=== PATIENT | female | born 1955 | race Caucasian/White ===

== ENCOUNTER → 2017-05-06 | Outpatient (CLI) | payer BC ==
[~2017-05-06] MED LIST: CHLO4TAB36 PO; LORA10TA7 PO; LOSA50TA36 PO; METO-387 PO
--- NOTE | 2017-05-06 08:50 | Diagnostic Imaging Report ---
INDICATION: Chronic shoulder pain. TIME OF EXAM: 8:48 AM Multiple views of bilateral shoulders were obtained. FINDINGS: Glenohumeral and acromioclavicular alignment is normal bilaterally. The acromiohumeral space is normal bilaterally. No fracture or dislocation is seen. IMPRESSION: No acute bony abnormality is detected. Dictated by: Dictated on workstation # [id number]
--- NOTE | 2017-05-07 08:45 | Diagnostic Imaging Report ---
INDICATION: Chest pain. EXAMINATION: Gated cardiac CTA without contrast for calcium scoring was performed. INDICATION: Chest pain. TECHNIQUE: A retrospective ECG gated cardiac CT was performed from the cardiac apex to the base without intravenous contrast and calcium scoring was obtained. FINDINGS: The total calcium score is zero. The heart size is normal. There is no pericardial effusion. The visualized portions of the lungs demonstrate no nodule or significant consolidation. IMPRESSION: The total calcium score of zero suggests a very low likelihood of significant coronary artery disease. Dictated by: Dictated on workstation # [id number]
== END ==
LOC: RAD 08:17
PROVIDERS: ATTEND Internal Medicine
DX: M25.511 Pain in right shoulder (principal); M25.512 Pain in left shoulder; R07.9 Chest pain, unspecified; G89.29 Other chronic pain
CPT/HCPCS: 75571

== ENCOUNTER → 2017-07-13 | Outpatient (CLI) | payer BC ==
--- NOTE | 2017-07-13 12:08 | Diagnostic Imaging Report ---
PROCEDURE: MR imaging cervical spine without contrast. TECHNIQUE: Multiplanar, multisequence MR imaging of the cervical spine was performed without contrast. INDICATION: Chronic neck pain, bilateral shoulder pain, symptoms progressive in severity with no known discrete injury. COMPARISON: I have no priors. FINDINGS: The cervical and visualized upper thoracic spinal cord has a normal volume and normal morphology and a normal signal intensity. There was no paravertebral mass, hemorrhage, or fluid collection and no acute appearing marrow signal pathology. There is slight grade 1 anterolisthesis of C3 on C4 of about 2 mm and C4 on C5 of about 5 mm and retrolisthesis of C5 on C6 and C6 on C7, both grade 1 of about 3-4 mm. Malalignments are accompanied by disc space narrowing, disc desiccation, endplate sclerosis, osteophytes and hypertrophic facet arthrosis, and degenerative disease believed to account for the multilevel mild listheses. No appreciable ligamentous injury, and no acute marrow signal pathology or fracture. The craniocervical relationship and the C1-C2 level appeared normal. C2-C3: Mild disc bulge and endplate osteophytes are present without resultant canal, foraminal, or recess stenoses. C3-C4: There is slight listhesis and hypertrophic facet arthrosis with mild disc bulge and endplate osteophytes. Findings result in a moderate degree of left-sided foraminal narrowing. The right neural foramen is mildly narrowed. The canal showed no significant stenosis. C4-C5: Osteophyte disc material effaces and flattens the ventral thecal sac. There is facet arthrosis and uncovertebral joint spurring and hypertrophy resulting in wrmw-uh-qeozqlcg left and mild right neural foraminal stenosis in addition to a mild degree of canal narrowing. C5-C6: Posterior disc bulge and endplate osteophytes with uncovertebral joint spurring and hypertrophy flatten and effaces the ventral thecal sac with a moderate severity of canal stenosis. On the soft tissue and osseous basis, there is wbhz-ua-udjdlagi left and moderate severity right foraminal stenosis. C6-C7: Posterior osteophyte disc material flattens and effaces the ventral thecal sac with sgti-mr-ziuoezas canal stenosis. There is severe right and moderate left foraminal stenosis. C7-T1 level reveals mild degenerative change without resultant stenosis. The T1-T2 level shows bulging disc material resulting in at least moderate severities of biforaminal narrowing with mild canal stenosis. IMPRESSION: Multilevel spondylosis, facet arthrosis, and uncovertebral joint hypertrophy with resultant multilevel grade 1 degenerative listheses described above. Normal cord. Multilevel foraminal greater than spinal canal stenoses listed level by level above. No acute pathology. Dictated by: Dictated on workstation # [id number]
== END ==
LOC: RAD 10:17
PROVIDERS: ATTEND Nurse Practitioner Family
DX: M48.02 Spinal stenosis, cervical region (principal); M48.04 Spinal stenosis, thoracic region; M43.12 Spondylolisthesis, cervical region; M47.23 Other spondylosis with radiculopathy, cervicothoracic region; M89.38 Hypertrophy of bone, other site; M50.11 Cervical disc disorder with radiculopathy, high cervical region
CPT/HCPCS: 72141

== ENCOUNTER → 2017-10-04 | Outpatient (CLI) | payer BC ==
--- NOTE | 2017-10-04 11:08 | Diagnostic Imaging Report ---
EXAMINATION: Magnetic resonance imaging of the right shoulder without contrast. DATE: 10/04/2017. COMPARISON: Shoulder radiographs 05/06/2017. INDICATION: 62-year-old female, right shoulder pain, impingement. TECHNIQUE: Magnetic Resonance Imaging sequences were performed of the shoulder without contrast. FINDINGS: ROTATOR CUFF, LIGAMENTS, TENDONS, AND MUSCLES: There are full-thickness fullwidth tears of the supraspinatus and infraspinatus tendons with tendon retraction to the level of the superior humeral head measuring 3 cm. The teres minor tendon is intact. There is subscapularis tendinopathy. There is mild fatty atrophy of the teres minor muscle. There is no pronounced fatty atrophy of the additional rotator cuff musculature. There is no otherwise abnormal intramuscular signal. LONG HEAD OF BICEPS: The long head of biceps tendon is thickened and increased in signal compatible with long head of biceps tendinopathy. The long head of biceps tendon is normally positioned within the bicipital groove. The biceps labral attachment is intact. GLENOHUMERAL JOINT: The humeral head is well positioned relative to the glenoid. The labrum is grossly intact. There is no identified paralabral cyst. The articular cartilage is grossly intact. There is no joint effusion. ACROMIOCLAVICULAR JOINT: The acromioclavicular joint is normally aligned. The coracoclavicular and coracoacromial ligaments are intact. There are moderate acromioclavicular degenerative changes without large undersurface osteophyte. There are prominent subchondral cysts within the distal clavicle. BONE: There is no acute fracture, bone contusion, or evidence of osteonecrosis. BURSAE AND SOFT TISSUES: There is fluid within the subacromial subdeltoid bursa which is compatible with the full-thickness rotator cuff tendon tears, bursitis, and/or recent injection. IMPRESSION: 1. Full-thickness and fullwidth tears of both the supraspinatus and infraspinatus tendons with tendon retraction to the level of the superior humeral head measuring 3 cm. No pronounced fatty muscle atrophy. Subscapularis tendinopathy. Mild fatty atrophy of the teres minor muscle. 2. Moderate acromioclavicular degenerative changes without large undersurface osteophyte. 3. No acute fracture or bone contusion. 4. Fluid within the subacromial subdeltoid bursa compatible with the full-thickness rotator cuff tendon tears, bursitis, and/or recent injection. 5. Long head of biceps tendinopathy. Dictated by: Dictated on workstation # [id number]
== END ==
LOC: RAD 08:57
PROVIDERS: ATTEND Nurse Practitioner Family
DX: M75.121 Complete rotator cuff tear or rupture of right shoulder, not specified as traumatic (principal); M19.011 Primary osteoarthritis, right shoulder; M67.813 Other specified disorders of tendon, right shoulder; M25.811 Other specified joint disorders, right shoulder
CPT/HCPCS: 73221

== ENCOUNTER 2017-12-10 09:05 | Emergency (ER) | payer BC ==
[~2017-12-10] VITALS: Ht 157.5 cm; Wt 82.1 kg
[~2017-12-10 09:05] MED LIST changes: +AMLO2.5T3 PO; +CARB15DR OU; +CEFD300C3 PO; +LOSA100T8 PO; -LOSA50TA36 PO; +LOSA50TA7 PO; +MELO15TA39 PO; +METO-370 PO; +MOME13HF IH; +PRED10TA22 PO; +RT-ALBUINH IH
[2017-12-10] MEDS ORDERED: NITROGLYCERIN 0.4 MG SL TABS BTL 25'S SL PRN (09:15)
[2017-12-10] MEDS ORDERED: ASPIRIN 81 MG CHEW (CHILDREN'S ASA) PO ONE (09:15)
[2017-12-10 09:21] LABS: BASOPHILS % (AUTO) 0 % (0-10); EOSINOPHILS # (AUTO) 0.2 10^3/uL (0.0-0.3); EOSINOPHILS % (AUTO) 2 % (0-10); HEMATOCRIT 38 % (35-52); HEMOGLOBIN 12.5 G/DL (11.5-16.0); LYMPHOCYTES # (AUTO) 3.6 X 10^3 (1.0-4.0); LYMPHOCYTES % (AUTO) 33 % (12-44); MEAN CORPUSCULAR HEMOGLOBIN 31 PG (25-34); MEAN CORPUSCULAR HGB CONC 33 G/DL (32-36); MEAN CORPUSCULAR VOLUME 94 FL (80-99); MEAN PLATELET VOLUME 8.5 FL (7.4-10.4); MONOCYTES # (AUTO) 0.8 X 10^3 (0.0-1.0); MONOCYTES % (AUTO) 8 % (0-12); NEUTROPHILS # (AUTO) 6.2 X 10^3 (1.8-7.8); NEUTROPHILS % (AUTO) 57 % (42-75); PLATELET COUNT 369 10^3/uL (130-400); RED CELL DISTRIBUTION WIDTH 14.4 % (10.0-14.5); WHITE BLOOD COUNT 10.9 10^3/uL (4.3-11.0)
[2017-12-10 09:35] LABS: INR 0.9 (0.8-1.4); PROTHROMBIN TIME PATIENT 12.6 SEC (12.2-14.7)
--- NOTE | 2017-12-10 09:41 | Diagnostic Imaging Report ---
CLINICAL INDICATION: Patient with chest pain. EXAM: Portable chest x-ray upright view. COMPARISONS: Chest x-ray dated 11/24/2017. Chest CT scan with contrast dated 11/26/2017. FINDINGS: Lungs/pleura: Stable calcified granuloma in the right upper lobe. There is slight progression of mild bibasilar atelectasis. Otherwise, lungs are clear. There is no pneumothorax. There is no pleural effusion. Mediastinum: Unremarkable. Pulmonary vasculature: Unremarkable. Heart: Unremarkable. Bones/extrathoracic soft tissue: Unremarkable. IMPRESSION: 1: There is interval mild bibasilar atelectasis. Otherwise, there is no radiographic evidence of acute cardiopulmonary process. 2: Stable calcified granuloma overlying the right upper lobe. Dictated by: Dictated on workstation # [id number]
[2017-12-10 09:45] LABS: ALANINE AMINOTRANSFERASE 33 U/L (0-55); ALBUMIN 4.1 GM/DL (3.2-4.5); ALKALINE PHOSPHATASE 54 U/L (40-136); AMYLASE 48 U/L (25-125); BILIRUBIN,TOTAL 0.4 MG/DL (0.1-1.0); BUN/CREATININE RATIO 20; CALCIUM 9.3 MG/DL (8.5-10.1); CARBON DIOXIDE 23 MMOL/L (21-32); CHLORIDE 103 MMOL/L (98-107); CREATINE KINASE 38 U/L (29-168); CREATININE SERUM 0.81 MG/DL (0.60-1.30); GFR ESTIMATED > 60; GLUCOSE 118 MG/DL (70-105); LIPASE 39 U/L (8-78); MAGNESIUM 2.7 MG/DL (1.8-2.4); POTASSIUM 4.1 MMOL/L (3.6-5.0); SODIUM 136 MMOL/L (135-145)
--- NOTE | 2017-12-10 09:46 | ED Chest Pain ---
General Chief Complaint: Chest Pain Stated Complaint: CHEST PAIN Source: patient Exam Limitations: no limitations History of Present Illness Date Seen by Provider: Dec 10, 2017 Time Seen by Provider: 09:08 Initial Comments PT ARRIVES VIA POV FROM HOME C/O MID CHEST PAIN THAT BEGAN 15 MINUTES PRIOR TO ARRIVAL, WHILE SITTING AT COMPUTER AND PAIN CONTINUES NO RADIATION OF PAIN SYMPTOMS SLIGHTLY WORSENED BY EXERTION RATES PAIN 7/10 AT WORST, 6/10 NOW. SLIGHT SHORTNESS OF BREATH + SWEATS + NAUSEA, NO VOMITING NO SWELLING IN LEGS /FEET OR PAIN IN CALVES HAD SIMILAR PAIN YESTERDAY, BUT ONLY LASTED A COUPLE OF MINUTES AND WENT AWAY WAS SITTING AND EATING AT THE TIME. WAS NOT EATING OR RECENTLY EATEN TODAY WHEN PAIN BEGAN. NO HISTORY OF SIMILAR, PRIOR TO YESTERDAY PT WAS LAST SEEN A COUPLE OF WEEKS AGO BY HER PCP, FOR COPD PT USED NORMAL SCHEDULED STEROID INHALER THIS AM, PT IS TO HAVE RIGHT SHOULDER SURGERY NEXT WEEK PCP: DR. MOTT Allergies and Home Medications Allergies Coded Allergies: No Known Drug Allergies (Unverified , 05/04/15) Home Medications Albuterol Sulfate 1 Puff Puff, 2 PUFF IH Q6H PRN for SHORTNESS OF BREATH 1 PUFF = 90 MCG Prescribed by: RED MOTT on 11/27/17 1219 Amlodipine Besylate 2.5 Mg Tablet, 2.5 MG PO HS, (Reported) Carboxymethylcellulose Sodium 15 Ml Drops, 1-2 DROPS OU TID PRN for DRY EYES, ( Reported) Cefdinir 300 Mg Capsule, 300 MG PO BID Prescribed by: RED MOTT on 11/27/179 Chlorpheniramine Maleate 4 Mg Tablet, 4 MG PO HS, (Reported) Loratadine 10 Mg Tablet, 10 MG PO HS, (Reported) Losartan Potassium 100 Mg Tablet, 100 MG PO HS, (Reported) Meloxicam 15 Mg Tablet, 15 MG PO HS, (Reported) Metoprolol Succinate 50 Mg Tab.er.24h, 50 MG PO HS, (Reported) Mometasone/Formoterol 13 Gm Hfa.aer.ad, 1 PUFF IH BID, (Reported) Prednisone 10 Mg Tab.ds.pk, 10 MG PO DAILY Take 6 tabs(60mg)daily,decrease by 1 tab(10mg)every other day. Prescribed by: RED MOTT on 11/27/17 1219 Patient Home Medication List Home Medication List Reviewed: Yes Review of Systems Review of Systems Constitutional: see HPI, diaphoresis EENTM: No Symptoms Reported Respiratory: See HPI, Shortness of Air, SOA With Exertion Cardiovascular: See HPI, Chest Pain; Denies Edema, Denies Irregular Heart Rate , Denies Lightheadedness, Denies Palpitations, Denies Syncope Gastrointestinal: See HPI; Denies Abdominal Pain; Nausea; Denies Vomiting Genitourinary: No Symptoms Reported Musculoskeletal: see HPI Skin: no symptoms reported Psychiatric/Neurological: No Symptoms Reported Endocrine: No Symptoms Reported Hematologic/Lymphatic: No Symptoms Reported Past Kglklrj-Vzffey-Gjjwmb Hx Patient Social History Alcohol Use: Occasionally Uses Alcohol Beverage of Choice: Wine Recreational Drug Use: No Smoking Status: Never a Smoker Recent Foreign Travel: No Contact w/Someone Who Travel: No Recent Hopitalizations: No Seasonal Allergies Seasonal Allergies: Yes Past Medical History Surgeries: Yes (CATARACTS, WISDOM TEETH REMOVED) Hysterectomy, Oophorectomy Respiratory: Yes COPD Cardiac: Yes High Cholesterol, Hypertension Neurological: No Reproductive Disorders: No (FIBROIDS ON BREASTS) 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 0.0oz. 86.607691hf; 33.9 BMI Method: General Appearance: No Apparent Distress, WD/WN Neck: Full Range of Motion, Normal Inspection, Non Tender, Supple; No Carotid Bruit, No JVD Respiratory: Chest Non Tender, Normal Breath Sounds, No Accessory Muscle Use, No Respiratory Distress Cardiovascular: Regular Rate, Rhythm, No Edema, No JVD, No Murmur, Normal Peripheral Pulses Gastrointestinal: Normal Bowel Sounds, No Organomegaly, No Pulsatile Mass, Non Tender, Soft Extremity: Normal Capillary Refill, Normal Inspection, Normal Range of Motion, Non Tender, No Calf Tenderness, No Pedal Edema Neurologic/Psychiatric: Alert, Oriented x3, No Motor/Sensory Deficits, Normal 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/Affect, 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 Norm as Tested Skin: Normal Color, Diaphoresis (AND WARM) Progress/Results/Core Measures Results/Orders Lab Results Laboratory Tests Test 12/10/17 09:15 Range/Units White Blood Count 10.9 4.3-11.0 10^3/uL Red Blood Count 4.00 L 4.35-5.85 10^6/uL Hemoglobin 12.5 11.5-16.0 G/DL Hematocrit 38 35-52 % Mean Corpuscular Volume 94 80-99 FL Mean Corpuscular Hemoglobin 31 25-34 PG Mean Corpuscular Hemoglobin Concent 33 32-36 G/DL Red Cell Distribution Width 14.4 10.0-14.5 % Platelet Count 369 130-400 10^3/uL Mean Platelet Volume 8.5 7.4-10.4 FL Neutrophils (%) (Auto) 57 42-75 % Lymphocytes (%) (Auto) 33 12-44 % Monocytes (%) (Auto) 8 0-12 % Eosinophils (%) (Auto) 2 0-10 % Basophils (%) (Auto) 0 0-10 % Neutrophils # (Auto) 6.2 1.8-7.8 X 10^3 Lymphocytes # (Auto) 3.6 1.0-4.0 X 10^3 Monocytes # (Auto) 0.8 0.0-1.0 X 10^3 Eosinophils # (Auto) 0.2 0.0-0.3 10^3/uL Basophils # (Auto) 0.0 0.0-0.1 10^3/uL Prothrombin Time 12.6 12.2-14.7 SEC INR Comment 0.9 0.8-1.4 Activated Partial Thromboplast Time 20 L 24-35 SEC Sodium Level 136 135-145 MMOL/L Potassium Level 4.1 3.6-5.0 MMOL/L Chloride Level 103 98-107 MMOL/L Carbon Dioxide Level 23 21-32 MMOL/L Anion Gap 10 5-14 MMOL/L Blood Urea Nitrogen 16 7-18 MG/DL Creatinine 0.81 0.60-1.30 MG/DL Estimat Glomerular Filtration Rate > 60 BUN/Creatinine Ratio 20 Glucose Level 118 H 70-105 MG/DL Calcium Level 9.3 8.5-10.1 MG/DL Corrected Calcium 9.2 8.5-10.1 MG/DL Magnesium Level 2.7 H 1.8-2.4 MG/DL Total Bilirubin 0.4 0.1-1.0 MG/DL Aspartate Amino Transf (AST/SGOT) 15 5-34 U/L Alanine Aminotransferase (ALT/SGPT) 33 0-55 U/L Alkaline Phosphatase 54 40-136 U/L Total Creatine Kinase 38 29-168 U/L Creatine Kinase MB 1.3 <6.6 NG/ML Myoglobin 22.2 10.0-92.0 NG/ML Troponin I < 0.30 <0.30 NG/ML B-Type Natriuretic Peptide 16.0 <100.0 PG/ML Total Protein 6.0 L 6.4-8.2 GM/DL Albumin 4.1 3.2-4.5 GM/DL Amylase Level 48 25-125 U/L Lipase 39 8-78 U/L My Orders Orders - ELISHA RYAN DO Cbc With Automated Diff (12/10/17 09:09) Magnesium (12/10/17 09:09) Chest 1 View, Ap/Pa Only (12/10/17 09:09) Ekg Tracing (12/10/17 09:09) Cardiac Profile 1 (12/10/17 09:09) Comprehensive Metabolic Panel (12/10/17 09:09) Myoglobin Serum (12/10/17 09:09) Protime With Inr (12/10/17 09:09) Partial Thromboplastin Time (12/10/17 09:09) O2 (12/10/17 09:09) Monitor-Rhythm Ecg Trace Only (12/10/17 09:09) Aspirin Chewable Tablet (Baby Aspirin Ch (12/10/17 09:15) Nitroglycerin 0.4 Mg Btl 25's (Nitrostat (12/10/17 09:15) Saline Lock/Iv-Start (12/10/17 09:09) Creatine Kinase (12/10/17 09:09) Creatine Kinase Mb (12/10/17 09:09) Lipase (12/10/17 09:09) Amylase (12/10/17 09:09) BNP (12/10/17 09:09) Enoxaparin Injection (Lovenox Injection) (12/10/17 10:15) Medications Given in ED Current Medications Medications Dose Ordered Sig/Bernardo Route Start Time Stop Time Status Last Admin Dose Admin Aspirin 324 mg ONCE ONCE PO 12/10/17 09:15 12/10/17 09:16 DC 12/10/17 09:49 324 MG Enoxaparin Sodium 80 mg ONCE ONCE SC 12/10/17 10:15 12/10/17 10:16 DC 12/10/17 11:36 80 MG Nitroglycerin 0.4 mg UD PRN SL 12/10/17 09:15 12/10/17 13:44 DC 12/10/17 09:45 0.4 MG Vital Signs/I&O 12/10/17 12/10/17 12/10/17 12/10/17 09:06 09:06 09:06 13:44 Temp 98.1 98.1 Pulse 51 61 Resp 16 25 B/P (MAP) 153/83 (106) 114/69 Pulse Ox 98 96 99 O2 Delivery Nasal Cannula Room Air Room Air O2 Flow Rate 2.00 Progress Progress Note : Progress Note PAIN AND ALL OTHER SYMPTOMS COMPLETELY RESOLVED WITH NTG X 1 UNEVENTFUL ER STAY Initial ECG Impression Date: Dec 10, 2017 Initial ECG Impression Time: 09:09 Initial ECG Rate: 52 Initial ECG Rhythm: Normal Sinus Initial ECG Comparisson: No Previous ECG Available Diagnostic Imaging Comments CXR---MILD BIBASILAR ATELECTASIS, OTHERWISE NO ACUTE PROCESS PER RADIOLOGIST REPORT @ 0945 Reviewed: Reviewed by Me Departure Communication (Admissions) THIS FACILITY IS CURRENTLY ON COMPLETE DIVERSION--NO BEDS AVAILABLE [facility]--CALLED [facility]. SPOKE WITH DR. THOMAS, ACCEPTS PT FOR ADMIT. ORDERS NOTED. MARKED DELAY IN TRANSPORT, DUE TO MULTIPLE PATIENTS BEING TRANSFERRED AT THE SAME TIME Impression Primary Impression: Chest pain Disposition: XFER T-[facility] Condition: Improved Departure-Patient Inst. Referrals: RED MOTT DO (PCP/Family) Primary Care Physician ELISHA RYAN DO Dec 10, 2017 09:46
[2017-12-10 09:53] LABS: CREATINE KINASE MB 1.3 NG/ML (<6.6); MYOGLOBIN SERUM 22.2 NG/ML (10.0-92.0)
[2017-12-10] MEDS ORDERED: ENOXAPARIN 80 MG/0.8 ML (LOVENOX) SYR SC ONE (10:15)
[2017-12-10 13:44] VITALS: BP 114/69
== END 2017-12-10 13:35 | disposition home or self-care (01) ==
LOC: EDUNIT# 09:05 → ER 09:07
DX: R07.89 Other chest pain (principal); J44.9 Chronic obstructive pulmonary disease, unspecified; E78.00 Pure hypercholesterolemia, unspecified; I10 Essential (primary) hypertension; Z79.51 Long term (current) use of inhaled steroids; Z90.710 Acquired absence of both cervix and uterus
CPT/HCPCS: 36415; 71045; 80053; 82150; 82550; 82553; 83690; 83735; 83874; 83880; 84484; 85025; 85610; 85730; 93005; 93041; 96372

== ENCOUNTER → 2018-01-07 | Outpatient (CLI) | payer BC | LOC: RT 12:44 | PROVIDERS: ATTEND Internal Medicine | DX: R05 Cough (principal) | CPT/HCPCS: 94060; 94726; 94729 ==

== ENCOUNTER 2018-04-06 13:09 | Outpatient (RCR) | payer BC ==
[~2018-04-06 13:09] MED LIST changes: -AMLO2.5T3 PO; +AMLO2.5T4 PO; +LOSA100T57 PO; -LOSA100T8 PO; +LOSA50TA63 PO; -LOSA50TA7 PO
== END 2018-05-15 | disposition home or self-care (01) ==
PROVIDERS: ATTEND Nurse Practitioner Family
DX: M25.511 Pain in right shoulder (principal)

== ENCOUNTER → 2018-07-08 | Outpatient (CLI) | payer BC ==
[2018-07-08 14:57] LABS: BASOPHILS % (AUTO) 1 % (0-10); EOSINOPHILS # (AUTO) 0.2 10^3/uL (0.0-0.3); EOSINOPHILS % (AUTO) 4 % (0-10); HEMATOCRIT 42 % (35-52); HEMOGLOBIN 13.9 G/DL (11.5-16.0); LYMPHOCYTES # (AUTO) 1.8 X 10^3 (1.0-4.0); LYMPHOCYTES % (AUTO) 35 % (12-44); MEAN CORPUSCULAR HEMOGLOBIN 31 PG (25-34); MEAN CORPUSCULAR HGB CONC 33 G/DL (32-36); MEAN CORPUSCULAR VOLUME 93 FL (80-99); MEAN PLATELET VOLUME 8.9 FL (7.4-10.4); MONOCYTES # (AUTO) 0.5 X 10^3 (0.0-1.0); MONOCYTES % (AUTO) 10 % (0-12); NEUTROPHILS # (AUTO) 2.6 X 10^3 (1.8-7.8); NEUTROPHILS % (AUTO) 51 % (42-75); PLATELET COUNT 321 10^3/uL (130-400); RED CELL DISTRIBUTION WIDTH 13.8 % (10.0-14.5); WHITE BLOOD COUNT 5.2 10^3/uL (4.3-11.0)
--- NOTE | 2018-07-08 15:57 | Diagnostic Imaging Report ---
INDICATION: Cough. TIME OF EXAM: 02:16 p.m. Correlation is made with prior chest from 12/10/2017. FINDINGS: Tiny nodule in right mid lung is stable and consistent with granuloma. The pulmonary vascularity is normal. No infiltrate, effusion, or pneumothorax is seen. IMPRESSION: No acute cardiopulmonary process is detected. Dictated by: Dictated on workstation # [id number]
== END ==
LOC: RAD 14:39
PROVIDERS: ATTEND Nurse Practitioner Family
DX: R05 Cough (principal)
CPT/HCPCS: 36415; 71046; 85025

== ENCOUNTER 2018-12-12 17:18 | Emergency (ER) | payer MEDICARE, OTHER ==
[~2018-12-12] VITALS: Ht 157 cm; Wt 77.0 kg
[2018-12-12] MEDS ORDERED: predniSONE 20 MG TAB PO ONE (17:30)
[2018-12-12] MEDS ORDERED: diphenhydrAMINE 50 MG/ML INJ (BENADRYL) IM ONE (17:30)
--- NOTE | 2018-12-12 18:00 | ED Integumentary General ---
General Chief Complaint: Bite-Animal/Human/Insect Stated Complaint: INSECT BITE - RIGHT ARM Nursing Triage Note: PT PRESENTS TO ED FROM HOME ACCOMPANIED BY SPOUSE WITH COMPLAINTS OF INSECT STING TO R POSTERIOR UPPER ARM FROM [facility] 4 HOURS AGO. PT REPORTS MILD NAUSEA, ITCHING AND PAIN AT STING SITE. REDNESS AND MILD SWELLING NOTED TO R POSTERIOR UPPER ARM. PT DENIES SOA OR THROAT DISCOMFORT. Source: patient Exam Limitations: no limitations History of Present Illness Date Seen by Provider: Dec 12, 2018 Time Seen by Provider: 17:30 Initial Comments 63-year-old female who presents to the emergency room accompanied by spouse with complaints of insect bite to her right posterior arm 4 hours ago. She reports that she was painting her door when she felt something sting the back of her arm. She reports mild nausea and localized itching, pain, redness. She denies shortness of air, throat swelling or discomfort. Alert and oriented on arrival to the emergency room. Associated Symptoms: change in skin texture Allergies and Home Medications Allergies Coded Allergies: No Known Drug Allergies (Unverified , 05/04/15) Home Medications Albuterol Sulfate 1 Puff Puff, 2 PUFF IH Q6H PRN for SHORTNESS OF BREATH 1 PUFF = 90 MCG Prescribed by: RED MOTT on 11/27/179 Amlodipine Besylate 2.5 Mg Tablet, 2.5 MG PO HS, (Reported) Carboxymethylcellulose Sodium 15 Ml Drops, 1-2 DROPS OU TID PRN for DRY EYES, (Reported) Cefdinir 300 Mg Capsule, 300 MG PO BID Prescribed by: RED MOTT on 11/27/179 Chlorpheniramine Maleate 4 Mg Tablet, 4 MG PO HS, (Reported) Loratadine 10 Mg Tablet, 10 MG PO HS, (Reported) Losartan Potassium 100 Mg Tablet, 100 MG PO HS, (Reported) Meloxicam 15 Mg Tablet, 15 MG PO HS, (Reported) Metoprolol Succinate 50 Mg Tab.er.24h, 50 MG PO HS, (Reported) Mometasone/Formoterol 13 Gm Hfa.aer.ad, 1 PUFF IH BID, (Reported) Prednisone 10 Mg Tab.ds.pk, 10 MG PO DAILY Take 6 tabs(60mg)daily,decrease by 1 tab(10mg)every other day. Prescribed by: RED MOTT on 11/27/17 1219 Patient Home Medication List Home Medication List Reviewed: Yes Review of Systems Review of Systems Constitutional: see HPI; No chills, No fever Skin: see HPI, change in color (redness to the back of arm right arm) All Other Systems Reviewed Negative Unless Noted: Yes Past Yqkkqrd-Dswlbq-Fvxwlu Hx Past Med/Social Hx: Reviewed Nursing Past Med/Soc Hx Patient Social History Alcohol Use: Regular Use Number of Drinks Today: Alcohol Beverage of Choice: Wine Recreational Drug Use: No Smoking Status: Current Everyday Smoker Type Used: Cigarettes Recent Foreign Travel: No Contact w/Someone Who Travel: No Recent Infectious Disease Expo: No Recent Hopitalizations: No Physical Abuse: No Sexual Abuse: No Mistreated: No Fear: No Seasonal Allergies Seasonal Allergies: Yes Past Medical History Surgeries: Yes (CATARACTS, WISDOM TEETH REMOVED) Hysterectomy, Oophorectomy Respiratory: Yes COPD Cardiac: Yes High Cholesterol, Hypertension Neurological: No Reproductive Disorders: No (FIBROIDS ON BREASTS) 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, 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 Sexually Transmitted Disease: No HIV/AIDS: No Genitourinary: No Gastrointestinal: No Musculoskeletal: Yes Arthritis, Chronic Back Pain Endocrine: No HEENT: Yes Cataract Cancer: No Psychosocial: No Integumentary: No Blood Disorders: No Adverse Reaction/Blood Tranf: No Family Medical History Reviewed Nursing Family Hx COPD Physical Exam Vital Signs Vital Signs - First Documented 12/12/18 17:30 Temp 36.3 Pulse 91 Resp 18 B/P (MAP) 177/94 Pulse Ox 97 Capillary Refill : Less Than 3 Seconds General Appearance: WD/WN, no apparent distress Cardiovascular: normal peripheral pulses, regular rate, rhythm, no edema, no gallop, no JVD, no murmur Respiratory: chest non-tender, lungs clear, normal breath sounds, no respiratory distress, no accessory muscle use Extremities: normal capillary refill Neurologic/Psychiatric: alert, normal mood/affect, oriented x 3 Skin: normal color, warm/dry, other Skin Problem Location: upper extremities (posterior right arm) Skin Problem Character: erythema (noted to the posterior aspect of the right arm. No puncture site noted.) Progress/Results/Core Measures Results/Orders My Orders Orders - KATERINE CORTES Diphenhydramine Injection (Benadryl Inje (12/12/18 17:30) Prednisone Tablet (Deltasone Tablet) (12/12/18 17:30) Medications Given in ED Current Medications Medications Dose Ordered Sig/Bernardo Route Start Time Stop Time Status Last Admin Dose Admin Diphenhydramine HCl 50 mg ONCE ONCE IM 12/12/18 17:30 12/12/18 17:31 DC 12/12/18 17:43 50 MG Prednisone 50 mg ONCE ONCE PO 12/12/18 17:30 12/12/18 17:31 DC 12/12/18 17:43 50 MG Vital Signs/I&O 12/12/18 17:30 Temp 36.3 Pulse 91 Resp 18 B/P (MAP) 177/94 Pulse Ox 97 Blood Pressure Mean: 121 Departure Impression Primary Impression: Insect bites Disposition: HOME, SELF-CARE Condition: Stable/Unchanged Departure-Patient Inst. Decision time for Depature: 18:20 Referrals: RED MOTT DO (PCP/Family) Primary Care Physician Patient Instructions: Insect Bites and Stings (DC) Add. Discharge Instructions: Continue to use Benadryl as needed. Take prednisone as directed. Follow-up with primary care provider within 1 week for recheck. Return back to the emergency room for worsening symptoms or concerns as needed. All discharge instructions reviewed with patient and/or family. Voiced understanding. Scripts Prednisone (Prednisone) 20 Mg Tab 40 MG PO DAILY for 4 Days, #8 TAB 0 Refills Prov: KATERINE CORTES 12/12/18 KATERINE CORTES Dec 12, 2018 18:00
[2018-12-12] MEDS ORDERED: PRD20T PO (18:21)
[2018-12-12 18:27] VITALS: BP 177/94
== END 2018-12-12 18:26 | disposition home or self-care (01) ==
LOC: EDUNIT# 17:18 → ER 17:19
DX: S40.861A Insect bite (nonvenomous) of right upper arm, initial encounter (principal); J44.9 Chronic obstructive pulmonary disease, unspecified; I10 Essential (primary) hypertension; E78.00 Pure hypercholesterolemia, unspecified; F17.210 Nicotine dependence, cigarettes, uncomplicated; Z90.710 Acquired absence of both cervix and uterus; W57.XXXA Bitten or stung by nonvenomous insect and other nonvenomous arthropods, initial encounter
CPT/HCPCS: 96372; 99283

== ENCOUNTER → 2020-10-11 | Outpatient (CLI) | payer MEDICARE, OTHER ==
[~2020-10-11] MED LIST changes: -METO-370 PO; -METO-387 PO; +METO50TA7 PO; +MTP25TSR PO; +PRD20T PO
--- NOTE | 2020-10-11 12:32 | Diagnostic Imaging Report ---
INDICATION: Routine screening. Comparison is made with prior mammogram 12/24/2014 and 12/07/2013. 2-D and 3-D bilateral screening mammography was performed with CAD. Both breasts are heterogeneously dense, limiting the sensitivity of mammography. A new lobulated nodular density has developed in the upper central aspect of the right breast approximately 6 cm from the nipple. The nodular density in the retroareolar medial left breast appears stable. No other masses are identified. There are benign calcifications in both breasts. No malignant appearing microcalcifications are seen. Axillae are unremarkable. IMPRESSION: BI-RADS 0 Lobulated density in the upper and slightly outer right breast approximately 11 to 12 o'clock location 6 cm from the nipple. Further evaluation with ultrasound is recommended. ACR BI-RADS Category 0: Incomplete. (Needs additional imaging evaluation). Result letter will be mailed to the patient. Note: At least 10% of breast cancer is not imaged by mammography. Dictated by: Dictated on workstation # [id number]
== END ==
LOC: RAD 10:45
PROVIDERS: ATTEND Internal Medicine
DX: Z12.31 Encounter for screening mammogram for malignant neoplasm of breast (principal)
CPT/HCPCS: 77063; 77067

== ENCOUNTER → 2020-10-17 | Outpatient (CLI) | payer MEDICARE, OTHER ==
--- NOTE | 2020-10-17 10:20 | Diagnostic Imaging Report ---
INDICATION: Right breast nodule. Correlation is made with screening mammogram from 10/11/2020. Sonographic interrogation of the upper slightly outer right breast was performed. There is a lobulated solid mass at 11:00 location, 5 to 6 cm from the nipple measuring 12 mm x 7 mm x 11 mm. This does show some internal vascularity. This is slightly irregular and is concerning for a small breast neoplasm. This does likely account for the mammographic density. No other masses are seen. IMPRESSION: BI-RADS Category 4 Lobulated solid mass 11:00 location right breast, 5-6 cm from the nipple. This likely accounts for the mammographic density. Features are somewhat concerning for a small breast malignancy and tissue sampling is recommended. This would be amenable to ultrasound-guided core biopsy. Dictated by: Dictated on workstation # [id number]
== END ==
LOC: RAD 09:15
PROVIDERS: ATTEND Internal Medicine
DX: N63.10 Unspecified lump in the right breast, unspecified quadrant (principal)

== ENCOUNTER → 2020-10-30 | Outpatient (CLI) | payer MEDICARE, OTHER ==
[~2020-10-30] VITALS: Ht 157.5 cm; Wt 75.0 kg
[~2020-10-30] MED LIST changes: +LIDOCAINE 1% INJ 20 ML 20 ML VIAL INJ ONE
--- NOTE | 2020-10-30 12:21 | Diagnostic Imaging Report ---
INDICATION: Right breast nodule, status post biopsy. TECHNIQUE: Unilateral right 2D CC and ML mammography was performed. FINDINGS: There appears to be a marker clip posterior to the lobulated nodule in the upper central right breast, status post ultrasound-guided biopsy. IMPRESSION: The marker clip does appear to be posterior to the lobulated lesion, as described. Dictated by: Dictated on workstation # [id number]
--- NOTE | 2020-10-30 13:22 | Diagnostic Imaging Report ---
INDICATION: Right breast nodule. Patient presents for ultrasound-guided biopsy. DETAILS OF THE PROCEDURE: The patient was brought to the ultrasound suite and placed on the table in the supine position. Ultrasound imaging of the right breast was performed to evaluate for an appropriate entry site. The right breast was then prepped and draped in the usual sterile fashion. Multiple core biopsies were obtained of the hypoechoic solid mass of the right breast at the 11 o'clock location 5-6 cm from the nipple utilizing a vacuum-assisted handheld 13-gauge mammotome device. A marker clip was then deployed. Hemostasis was obtained using manual compression. The patient tolerated the procedure well and left the Department in stable condition. IMPRESSION: Successful ultrasound-guided core biopsy of the solid hypoechoic nodule at the 11 o'clock location of the right breast 5-6 cm from the nipple utilizing a 13-gauge hand-held vacuum-assisted mammotome device. Pathology results are currently pending. Dictated by: Dictated on workstation # [id number]
== END ==
LOC: RAD 11:00
PROVIDERS: ATTEND Internal Medicine
DX: N63.11 Unspecified lump in the right breast, upper outer quadrant (principal)
CPT/HCPCS: 19083; 77065; G0279

== ENCOUNTER → 2021-03-04 | Outpatient (RCR) | payer MEDICARE, OTHER ==
[~2021-03-04] MED LIST changes: -LIDOCAINE 1% INJ 20 ML 20 ML VIAL INJ ONE
== END | disposition home or self-care (01) ==
PROVIDERS: ATTEND Nurse Practitioner
DX: M47.22 Other spondylosis with radiculopathy, cervical region (principal); M50.30 Other cervical disc degeneration, unspecified cervical region

== ENCOUNTER 2021-03-31 11:11 | Outpatient (RCR) | payer MEDICARE, OTHER | END 2021-04-04 | disposition still patient (30) | PROVIDERS: ATTEND Nurse Practitioner | DX: M50.10 Cervical disc disorder with radiculopathy, unspecified cervical region (principal); M47.22 Other spondylosis with radiculopathy, cervical region; I10 Essential (primary) hypertension ==

== ENCOUNTER 2021-04-09 10:03 | Outpatient (RCR) | payer MEDICARE, OTHER | END 2021-05-05 | disposition home or self-care (01) | PROVIDERS: ATTEND Nurse Practitioner | DX: M47.22 Other spondylosis with radiculopathy, cervical region (principal); M50.10 Cervical disc disorder with radiculopathy, unspecified cervical region; I10 Essential (primary) hypertension ==

== ENCOUNTER → 2021-06-02 | Outpatient (CLI) | payer MEDICARE, OTHER ==
--- NOTE | 2021-06-02 14:22 | Diagnostic Imaging Report ---
INDICATION: 6 month followup right breast nodule. COMPARISON: 10/11/2020. TECHNIQUE: Unilateral right 2D and 3D diagnostic mammography was performed with CAD. FINDINGS: Both breasts remain heterogeneously dense. The lobulated nodular density in the upper right breast at mid depth appears stable. There is a marker clip posterior to this lesion. No new masses are identified. There are scattered benign calcifications noted. The right axilla is unremarkable. IMPRESSION: Stable right mammogram. Right breast nodular density appears stable. Continued 6 month followup is recommended to confirm stability. ACR BI-RADS Category 3: Probably benign findings. Result letter will be mailed to the patient. Note: At least 10% of breast cancer is not imaged by mammography. Dictated by: Dictated on workstation # [id number]
== END ==
LOC: RAD 13:15
PROVIDERS: ATTEND Internal Medicine
DX: N63.10 Unspecified lump in the right breast, unspecified quadrant (principal)
CPT/HCPCS: 77065; G0279

== ENCOUNTER 2021-08-01 11:16 | Outpatient (RCR) | payer MEDICARE, OTHER | END 2021-08-02 | disposition home or self-care (01) | PROVIDERS: ATTEND Pain Medicine Interventional Pain Medicine | DX: M50.10 Cervical disc disorder with radiculopathy, unspecified cervical region (principal); I10 Essential (primary) hypertension ==

== ENCOUNTER 2021-08-09 00:25 | Emergency (ER) | payer MEDICARE, OTHER ==
[~2021-08-09] VITALS: Ht 157.4 cm; Wt 78.3 kg
[2021-08-09 00:57] LABS: BILIRUBIN,URINE NEGATIVE (NEGATIVE); CLARITY,URINE CLEAR; COLOR,URINE YELLOW; GLUCOSE, URINE (UA) NEGATIVE (NEGATIVE); KETONES,URINE NEGATIVE (NEGATIVE); LEUKOCYTE ESTERASE ,URINE 2+ (NEGATIVE); NITRITE,URINE NEGATIVE (NEGATIVE); PROTEIN,URINE NEGATIVE (NEGATIVE)
[2021-08-09 01:00] LABS: BASOPHILS # (AUTO) 0.1 10^3/uL (0.0-0.1); BASOPHILS % (AUTO) 1 % (0-10); EOSINOPHILS # (AUTO) 0.3 10^3/uL (0.0-0.3); EOSINOPHILS % (AUTO) 4 % (0-10); HEMATOCRIT 39 % (35-52); HEMOGLOBIN 13.6 g/dL (11.5-16.0); LYMPHOCYTES # (AUTO) 2.7 10^3/uL (1.0-4.0); LYMPHOCYTES % (AUTO) 37 % (12-44); MEAN CORPUSCULAR HEMOGLOBIN 33 pg (25-34); MEAN CORPUSCULAR HGB CONC 35 g/dL (32-36); MEAN CORPUSCULAR VOLUME 93 fL (80-99); MEAN PLATELET VOLUME 9.5 fL (9.0-12.2); MONOCYTES # (AUTO) 0.6 10^3/uL (0.0-1.0); MONOCYTES % (AUTO) 8 % (0-12); NEUTROPHILS # (AUTO) 3.7 10^3/uL (1.8-7.8); NEUTROPHILS % (AUTO) 50 % (42-75); PLATELET COUNT 335 10^3/uL (130-400); WHITE BLOOD COUNT 7.3 10^3/uL (4.3-11.0)
[2021-08-09] MEDS ORDERED: NS IV 1000 ML 1,000 ML IV SCH (01:00)
--- NOTE | 2021-08-09 01:04 | ED Abdominal Pain ---
General Chief Complaint: Abdominal/GI Problems Stated Complaint: PAIN IN LOWER RT ABD Nursing Triage Note: Pt arrival to ER with complaint of Lower Right Abdominal pain since 2029. Pt states that its a sharp intermittent pain. Pt denies changes in urination or bowel. Pt states that pain isn't something she felt before and feels like its worsening. Pt states that she did have a beer around 1730 and then one at the club earlier this evening. Source of Information: Patient, Spouse Exam Limitations: No Limitations History of Present Illness Date Seen by Provider: August 09, 2021 Time Seen by Provider: 00:47 Initial Comments Patient presents to the ER by private conveyance with his significant other and chief complaint that about 830 last night, 4-1/2 hours prior to arrival she began to experience intermittent, progressive, sharp stabbing pains in her right lower quadrant abdomen around McBurney's point. Pain was not made worse by movement. She had a beer at [employer] at 8:00 and some sips of water up until the point she arrived to the ER. She took Tylenol 1000 mg at 1030 with no relief. She takes gabapentin routinely for her low back pain. She has scheduled follow-up with a neurosurgeon about back surgery in September. She has not had any itchy rash. She is not having any dysuria or diarrhea. She had a normal bowel movement today. She has had a hysterectomy but no other abdominal surgeries. No fevers chills or vomiting but she does feel a little nauseated from time to time. Allergies and Home Medications Allergies Coded Allergies: No Known Drug Allergies (Unverified , 05/04/15) Patient Home Medication List Home Medication List Reviewed: Yes Albuterol Sulfate (Proair Hfa) 1 Puff Puff, 2 PUFF IH Q6H PRN for SHORTNESS OF BREATH Prescribed by: RED MOTT on 11/27/17 1219 Amlodipine Besylate (Amlodipine Besylate) 2.5 Mg Tablet, 2.5 MG PO HS, (Reported) Entered as Reported by: MARILIN MENDOZA on 11/26/17 1430 Carboxymethylcellulose Sodium (Refresh Tears) 15 Ml Drops, 1-2 DROPS OU TID PRN for DRY EYES, (Reported) Entered as Reported by: MARILIN MENDOZA on 11/26/17 1435 Cefdinir (Cefdinir) 300 Mg Capsule, 300 MG PO BID Prescribed by: RED MOTT on 11/27/17 1219 Cefdinir (Cefdinir) 300 Mg Capsule, 300 MG PO BID Prescribed by: PÉREZ SANTOS on 08/09/21 0259 Chlorpheniramine Maleate (Chlorpheniramine Maleate) 4 Mg Tablet, 4 MG PO HS, (Reported) Entered as Reported by: WARREN BAEZA on 05/04/151941 Loratadine (Loratadine) 10 Mg Tablet, 10 MG PO HS, (Reported) Entered as Reported by: WARREN BAEZA on 05/04/151941 Losartan Potassium (Losartan Potassium) 100 Mg Tablet, 100 MG PO HS, (Reported) Entered as Reported by: MARILIN MENDOZA on 11/26/17 143 Meloxicam (Meloxicam) 15 Mg Tablet, 15 MG PO HS, (Reported) Entered as Reported by: MARILIN MENDOZA on 11/26/17 143 Metoprolol Succinate (Metoprolol Succinate) 50 Mg Tab.er.24h, 50 MG PO HS, (Reported) Entered as Reported by: MARILIN MENDOZA on 11/26/17 1430 Mometasone/Formoterol (Dulera 200 Mcg/5 Mcg Inhaler) 13 Gm Hfa.aer.ad, 1 PUFF IH BID, (Reported) Entered as Reported by: MARILIN MENDOZA on 11/26/17 1435 Prednisone (Prednisone) 10 Mg Tab.ds.pk, 10 MG PO DAILY Prescribed by: RED MOTT on 11/27/17 1219 Prednisone (Prednisone) 20 Mg Tab, 40 MG PO DAILY Prescribed by: KATERINE CORTES on 12/12/18 1821 Review of Systems Review of Systems Constitutional: No chills, No diaphoresis EENTM: No Blurred Vision, No Double Vision Respiratory: Denies Cough, Denies Shortness of Air Cardiovascular: Denies Chest Pain, Denies Lightheadedness Gastrointestinal: See HPI, Abdominal Pain; Denies Constipated, Denies Diarrhea, Denies Nausea Genitourinary: Denies Burning, Denies Discharge All Other Systems Reviewed Negative Unless Noted: Yes Past Achdljg-Uayapy-Ahoobw Hx Patient Social History Tobacco Use?: No Use of E-Cig and/or Vaping dev: No Substance use?: No Alcohol Use?: No Pt feels they are or have been: No Immunizations Up To Date Influenza Vaccine Up-to-Date: Yes; Up-to-Date Seasonal Allergies Seasonal Allergies: Yes Past Medical History Surgeries: Yes (CATARACTS, WISDOM TEETH REMOVED) Hysterectomy, Oophorectomy Respiratory: Yes COPD Cardiac: Yes High Cholesterol, Hypertension Neurological: No Reproductive Disorders: No (FIBROIDS ON BREASTS) [place] History: Hysterectomy, Menopausal Sexually Transmitted Disease: No HIV/AIDS: No Genitourinary: No Gastrointestinal: No Musculoskeletal: Yes Arthritis, Chronic Back Pain Endocrine: No HEENT: Yes Cataract Cancer: No Psychosocial: No Integumentary: No Blood Disorders: No Adverse Reaction/Blood Tranf: No Family Medical History COPD Physical Exam Vital Signs Vital Signs - First Documented 08/09/21 00:42 Temp 36.6 Pulse 64 Resp 18 B/P (MAP) 150/76 (100) Pulse Ox 96 O2 Delivery Room Air Capillary Refill : Less Than 3 Seconds Height/Weight/BMI Height: 5'2.00" Weight: 181lbs. 0.0oz. [id number]; 31.00 BMI Method:Stated General Appearance: WD/WN, no apparent distress HEENT: PERRL/EOMI, normal ENT inspection, TMs normal, pharynx normal Neck: non-tender, full range of motion, supple, normal inspection Respiratory: lungs clear, normal breath sounds, no respiratory distress, no accessory muscle use Cardiovascular: normal peripheral pulses, regular rate, rhythm Gastrointestinal: normal bowel sounds, soft; No rebound; tenderness (McBurney's point), other (Negative for psoas sign, Rovsing sign, mesenteric signs) Neurologic/Psychiatric: alert, normal mood/affect, oriented x 3 Skin: normal color, warm/dry Progress/Results/Core Measures Results/Orders Lab Results Laboratory Tests Test 08/09/21 00:48 08/09/21 00:50 Range/Units White Blood Count 7.3 4.3-11.0 10^3/uL Red Blood Count 4.18 3.80-5.11 10^6/uL Hemoglobin 13.6 11.5-16.0 g/dL Hematocrit 39 35-52 % Mean Corpuscular Volume 93 80-99 fL Mean Corpuscular Hemoglobin 33 25-34 pg Mean Corpuscular Hemoglobin Concent 35 32-36 g/dL Red Cell Distribution Width 12.4 10.0-14.5 % Platelet Count 335 130-400 10^3/uL Mean Platelet Volume 9.5 9.0-12.2 fL Immature Granulocyte % (Auto) 0 % Neutrophils (%) (Auto) 50 42-75 % Lymphocytes (%) (Auto) 37 12-44 % Monocytes (%) (Auto) 8 0-12 % Eosinophils (%) (Auto) 4 0-10 % Basophils (%) (Auto) 1 0-10 % Neutrophils # (Auto) 3.7 1.8-7.8 10^3/uL Lymphocytes # (Auto) 2.7 1.0-4.0 10^3/uL Monocytes # (Auto) 0.6 0.0-1.0 10^3/uL Eosinophils # (Auto) 0.3 0.0-0.3 10^3/uL Basophils # (Auto) 0.1 0.0-0.1 10^3/uL Immature Granulocyte # (Auto) 0.0 0.0-0.1 10^3/uL Sodium Level 138 135-145 MMOL/L Potassium Level 4.0 3.6-5.0 MMOL/L Chloride Level 102 98-107 MMOL/L Carbon Dioxide Level 22 21-32 MMOL/L Anion Gap 14 5-14 MMOL/L Blood Urea Nitrogen 23 H 7-18 MG/DL Creatinine 0.75 0.60-1.30 MG/DL Estimat Glomerular Filtration Rate 87 BUN/Creatinine Ratio 31 Glucose Level 102 70-105 MG/DL Calcium Level 9.8 8.5-10.1 MG/DL Corrected Calcium 9.4 8.5-10.1 MG/DL Total Bilirubin 0.2 0.1-1.0 MG/DL Aspartate Amino Transf (AST/SGOT) 17 5-34 U/L Alanine Aminotransferase (ALT/SGPT) 23 0-55 U/L Alkaline Phosphatase 76 40-136 U/L C-Reactive Protein High Sensitivity 0.38 0.00-0.50 MG/DL Total Protein 7.6 6.4-8.2 GM/DL Albumin 4.5 3.2-4.5 GM/DL Lipase 58 8-78 U/L Urine Color YELLOW Urine Clarity CLEAR Urine pH 6.0 5-9 Urine Specific Wells <=1.005 1.016-1.022 Urine Protein NEGATIVE NEGATIVE Urine Glucose (UA) NEGATIVE NEGATIVE Urine Ketones NEGATIVE NEGATIVE Urine Nitrite NEGATIVE NEGATIVE Urine Bilirubin NEGATIVE NEGATIVE Urine Urobilinogen 0.2 < = 1.0 MG/DL Urine Leukocyte Esterase 2+ H NEGATIVE Urine RBC (Auto) NEGATIVE NEGATIVE Urine RBC NONE /HPF Urine WBC 5-10 H /HPF Urine Squamous Epithelial Cells 2-5 /HPF Urine Crystals NONE /LPF Urine Bacteria NEGATIVE /HPF Urine Casts NONE /LPF Urine Mucus NEGATIVE /LPF Urine Culture Indicated YES My Orders Orders - PÉREZ SANTOS Ua Culture If Indicated (08/09/21 00:37) Cbc With Automated Diff (08/09/21 00:37) Comprehensive Metabolic Panel (08/09/21 00:37) Hs C Reactive Protein (08/09/21 00:37) Lipase (08/09/21 00:37) Ed Iv/Invasive Line Start (08/09/21 01:00) Ns Iv 1000 Ml (Sodium Chloride 0.9%) (08/09/21 01:00) Ct Abdomen/Pelvis W (08/09/21 01:00) Iohexol Injection (Omnipaque 350 Mg/Ml 1 (08/09/21 02:00) Sodium Chloride Flush (Catheter Flush Sy (08/09/21 02:00) Ns (Ivpb) (Sodium Chloride 0.9% Ivpb Bag (08/09/21 02:00) Ceftriaxone 1 Gm Pre-Mix (Rocephin 1 Gm (08/09/21 03:00) Phenazopyridine Tablet (Pyridium Tablet) (08/09/21 03:15) Urine Culture (08/09/21 00:50) Medications Given in ED Vital Signs/I&O 08/09/21 08/09/21 00:42 03:21 Temp 36.6 36.6 Pulse 64 67 Resp 18 18 B/P (MAP) 150/76 (100) 132/71 Pulse Ox 96 98 O2 Delivery Room Air Room Air Blood Pressure Mean: 100 Progress Progress Note : Time: 01:03 Progress Note She does not want anything for the pain or nausea at this moment. We will check some labs and get a CT of her abdomen pelvis with a differential of diverticulitis/colitis, appendicitis, musculoskeletal, etc. Diagnostic Imaging Diagonstic Imaging: CT Plain Films/CT/US/NM/MRI: abdomen, pelvis Comments Appendix upper limit of normal caliber, no definite periappendiceal fat stranding. Suspect a normal variation. No bowel obstruction. No definite asymmetric bowel mucosal abnormality. Mild to moderate stool burden presumed normal variation. No free intraperitoneal fluid or pneumoperitoneum. Kidneys demonstrate normal enhancement without hydronephrosis or nephrolithiasis. No definite ureteral stones. No bladder calcifications. [facility]. [place], [place] NAME: NAYLA SOLITARIO [facility] REC#: [id number] PT STATUS: DEP ER : 1955 PHYSICIAN: PÉREZ SANTOS MD ADMIT DATE: 08/09/21/ER Signed Date of Exam:08/09/21 CT ABDOMEN/PELVIS W EXAMINATION: CT abdomen and pelvis with intravenous contrast. TECHNIQUE: Multiple contiguous axial images were obtained through the abdomen and pelvis after the uneventful administration of intravenous contrast. All CT scans use one or more of the following dose optimizing techniques: automated exposure control, MA and/or KvP adjustment based on patient size and exam type or iterative reconstruction. HISTORY: Right lower quadrant pain COMPARISON: None available. FINDINGS: Lung bases: The lung bases are clear. Solid organs: The liver is normal without focal lesion. The gallbladder is normal. There is no biliary ductal dilation. Pancreas is normal. Spleen is normal. Adrenal glands are normal. The kidneys are normal without hydronephrosis. Bowel: The stomach and small bowel are normal without obstruction. The colon and appendix are normal. Peritoneum: There is no intraperitoneal free fluid or free air. No suspicious lymphadenopathy. Vasculature: Calcification of the aorta without aneurysm. Musculoskeletal: Degenerative changes of the spine without suspicious osseous lesion or compression fracture. Pelvis: The uterus is surgically absent. No adnexal mass. The urinary bladder is normal. IMPRESSION: 1. No acute abnormality in the abdomen or pelvis. 2. Agree with preliminary interpretation. Dictated by: Dictated on workstation # [id number] Dict: 08/09/2137 Trans: 08/09/21754 [facility] [id number] Interpreted by: KATHLEEN PATEL DO Electronically signed by: KATHLEEN PATEL DO 08/09/21 0755 Reviewed: Reviewed [facility] Study, Reviewed by Nv Departure Impression Primary Impression: UTI (urinary tract infection) Qualified Codes: N30.00 - Acute cystitis without hematuria Disposition: HOME, SELF-CARE Condition: Stable Departure-Patient Inst. Decision time for Depature: 02:58 Referrals: RED MOTT DO (PCP/Family) Primary Care Physician Patient Instructions: Urinary Tract Infection, Adult (DC) Add. Discharge Instructions: Drink lots of fluids. Pyridium 200 mg twice a day as needed for pain. Tylenol 1000 mg every 8 hours as needed for pain. Cefdinir 1 capsule twice a day for a week. If symptoms or not improving in 3 to 4 days then follow-up with your primary care physician. Return to the ER for intractable pain, intractable fever, intractable nausea or other worrisome symptoms. All discharge instructions reviewed with patient and/or family. Voiced understanding. Scripts Cefdinir (Cefdinir) 300 Mg Capsule 300 MG PO BID for 7 Days, #14 CAP 0 Refills Prov: PÉREZ SANTOS 08/09/21 Copy Copies To 1: RED MOTT TITUS J August 09, 2021 01:03
[2021-08-09 01:11] LABS: BACTERIA,URINE NEGATIVE /HPF
[2021-08-09 01:12] LABS: ALBUMIN 4.5 GM/DL (3.2-4.5)
[2021-08-09 01:13] LABS: CALCIUM 9.8 MG/DL (8.5-10.1)
[2021-08-09 01:15] LABS: TOTAL PROTEIN 7.6 GM/DL (6.4-8.2)
[2021-08-09 01:16] LABS: BILIRUBIN,TOTAL 0.2 MG/DL (0.1-1.0)
[2021-08-09 01:18] LABS: CREATININE SERUM 0.75 MG/DL (0.60-1.30)
[2021-08-09] MEDS ORDERED: CATHETER FLUSH 10 ML SYR IV PRN (02:00)
[2021-08-09] MEDS ORDERED: NS 100 ML (IVPB) BAG IV ONE (02:00)
[2021-08-09] MEDS ORDERED: IOHEXOL 350 MG/ML 100 ML (OMNIPAQUE 350) VIAL IV ONE (02:00)
[2021-08-09] MEDS ORDERED: CEFD300C3 PO (02:59)
[2021-08-09] MEDS ORDERED: cefTRIAXone 1 GM PRE-MIX 50 ML IV ONE (03:00)
[2021-08-09] MEDS ORDERED: PHENAZOPYRIDINE 100 MG (PYRIDIUM) TABLET PO ONE (03:15)
[2021-08-09 03:21] VITALS: BP 132/71
--- NOTE | 2021-08-09 06:40 | Diagnostic Imaging Report ---
EXAMINATION: CT abdomen and pelvis with intravenous contrast. TECHNIQUE: Multiple contiguous axial images were obtained through the abdomen and pelvis after the uneventful administration of intravenous contrast. All CT scans use one or more of the following dose optimizing techniques: automated exposure control, MA and/or KvP adjustment based on patient size and exam type or iterative reconstruction. HISTORY: Right lower quadrant pain COMPARISON: None available. FINDINGS: Lung bases: The lung bases are clear. Solid organs: The liver is normal without focal lesion. The gallbladder is normal. There is no biliary ductal dilation. Pancreas is normal. Spleen is normal. Adrenal glands are normal. The kidneys are normal without hydronephrosis. Bowel: The stomach and small bowel are normal without obstruction. The colon and appendix are normal. Peritoneum: There is no intraperitoneal free fluid or free air. No suspicious lymphadenopathy. Vasculature: Calcification of the aorta without aneurysm. Musculoskeletal: Degenerative changes of the spine without suspicious osseous lesion or compression fracture. Pelvis: The uterus is surgically absent. No adnexal mass. The urinary bladder is normal. IMPRESSION: 1. No acute abnormality in the abdomen or pelvis. 2. Agree with preliminary interpretation. Dictated by: Dictated on workstation # [id number]
== END 2021-08-09 03:30 | disposition home or self-care (01) ==
LOC: EDUNIT# 00:25 → ER 00:28
DX: N30.00 Acute cystitis without hematuria (principal); Z90.710 Acquired absence of both cervix and uterus
CPT/HCPCS: 36415; 74177; 80053; 81000; 83690; 85025; 86141; 87088

== ENCOUNTER → 2021-09-02 | Outpatient (RCR) | payer MEDICARE, OTHER | END | disposition home or self-care (01) | PROVIDERS: ATTEND Pain Medicine Interventional Pain Medicine | DX: M50.10 Cervical disc disorder with radiculopathy, unspecified cervical region (principal); M47.12 Other spondylosis with myelopathy, cervical region; I10 Essential (primary) hypertension ==

== ENCOUNTER 2021-09-30 10:43 | Outpatient (RCR) | payer MEDICARE, OTHER | END 2021-10-02 | disposition home or self-care (01) | PROVIDERS: ATTEND Pain Medicine Interventional Pain Medicine | DX: M47.22 Other spondylosis with radiculopathy, cervical region (principal); M50.10 Cervical disc disorder with radiculopathy, unspecified cervical region; I10 Essential (primary) hypertension ==

== ENCOUNTER 2021-10-31 14:13 | Outpatient (RCR) | payer MEDICARE, OTHER | END 2021-11-02 | disposition home or self-care (01) | PROVIDERS: ATTEND Pain Medicine Interventional Pain Medicine | DX: M47.22 Other spondylosis with radiculopathy, cervical region (principal); M50.10 Cervical disc disorder with radiculopathy, unspecified cervical region; I10 Essential (primary) hypertension ==

== ENCOUNTER → 2021-12-01 | Outpatient (CLI) | payer MEDICARE, OTHER ==
--- NOTE | 2021-12-01 13:20 | Diagnostic Imaging Report ---
Indication: Six-month follow-up right breast density. Correlation is made prior right mammogram from 06/02/2021 as well as bilateral mammograms on 10/11/2020 AND 12/24/2014. 2-D and 3-D bilateral diagnostic mammography was performed with CAD. CAD is utilized. The current study was also evaluated with a Computer Aided Detection (CAD) system. Both breasts remain heterogeneously dense, limiting the sensitivity of mammography. Lobulated density upper central right breast appears to be fairly similar. The circumscribed density inner left breast anterior depth also appears stable. No new mass is seen. No malignant-appearing microcalcifications are identified. Scattered benign calcifications are noted. There is a biopsy clip projected just posterior to the centrally based lesion. Axillae are unremarkable. IMPRESSION: BI-RADS Category 0 Stable bilateral mammograms. Sonographic follow-up of the circumscribed nodule in the central right breast is recommended and will be performed today. ACR BI-RADS Category 0: Incomplete. (Needs additional imaging evaluation). Result letter will be mailed to the patient. Note: At least 10% of breast cancer is not imaged by mammography. Dictated by: Dictated on workstation # [id number]
--- NOTE | 2021-12-01 14:24 | Diagnostic Imaging Report ---
Indication: Six-month follow-up right breast nodule. Correlation is made with diagnostic mammogram earlier today as well as right breast ultrasound from 10/17/2020. Sonographic interrogation 11:00 location right breast, 5 to 6 cm from the nipple again demonstrates a slightly lobulated solid mass measuring 8 mm x 7 mm x 7 mm. This compares with 12 mm x 7 mm x 11 mm on prior exam. No new masses detected. IMPRESSION: BI-RADS Category 3 Stable to perhaps slightly decreased size of solid mass 11:00 location right breast, 5-6 cm from the nipple. Continued follow-up mammogram and ultrasound in 6 months is recommended to show continued stability. ACR BI-RADS Category 3: Probably benign findings. Dictated by: Dictated on workstation # [id number]
== END ==
LOC: RAD 12:45
PROVIDERS: ATTEND Internal Medicine
DX: N63.11 Unspecified lump in the right breast, upper outer quadrant (principal)
CPT/HCPCS: 76642; 77066; G0279; 77062

== ENCOUNTER 2021-12-02 13:13 | Outpatient (RCR) | payer MEDICARE, OTHER | END 2021-12-03 | disposition home or self-care (01) | PROVIDERS: ATTEND Pain Medicine Interventional Pain Medicine | DX: M47.22 Other spondylosis with radiculopathy, cervical region (principal); M50.10 Cervical disc disorder with radiculopathy, unspecified cervical region; I10 Essential (primary) hypertension ==

== ENCOUNTER 2021-12-26 15:19 | Outpatient (RCR) | payer MEDICARE, OTHER ==
[~2021-12-26 15:19] MED LIST changes: -MOME13HF IH; +MOME13HF11 IH
== END 2022-01-02 | disposition home or self-care (01) ==
PROVIDERS: ATTEND Pain Medicine Interventional Pain Medicine
DX: M47.22 Other spondylosis with radiculopathy, cervical region (principal); M50.10 Cervical disc disorder with radiculopathy, unspecified cervical region; I10 Essential (primary) hypertension

== ENCOUNTER → 2022-02-02 | Outpatient (RCR) | payer MEDICARE, OTHER ==
[~2022-02-02] MED LIST changes: +ALBU8.5H6 IH; -RT-ALBUINH IH
== END | disposition home or self-care (01) ==
PROVIDERS: ATTEND Pain Medicine Interventional Pain Medicine
DX: M47.22 Other spondylosis with radiculopathy, cervical region (principal); M50.10 Cervical disc disorder with radiculopathy, unspecified cervical region; I10 Essential (primary) hypertension

== ENCOUNTER 2022-03-02 11:18 | Outpatient (RCR) | payer MEDICARE, OTHER | END 2022-03-04 | disposition home or self-care (01) | PROVIDERS: ATTEND Pain Medicine Interventional Pain Medicine | DX: M47.22 Other spondylosis with radiculopathy, cervical region (principal); M50.10 Cervical disc disorder with radiculopathy, unspecified cervical region; M50.30 Other cervical disc degeneration, unspecified cervical region; I10 Essential (primary) hypertension ==

== ENCOUNTER 2022-04-02 09:31 | Outpatient (RCR) | payer MEDICARE, OTHER | END 2022-04-04 | disposition home or self-care (01) | PROVIDERS: ATTEND Pain Medicine Interventional Pain Medicine | DX: M47.22 Other spondylosis with radiculopathy, cervical region (principal); M47.12 Other spondylosis with myelopathy, cervical region; M50.10 Cervical disc disorder with radiculopathy, unspecified cervical region; M50.00 Cervical disc disorder with myelopathy, unspecified cervical region; I10 Essential (primary) hypertension ==

== ENCOUNTER 2022-05-01 08:34 | Outpatient (RCR) | payer MEDICARE, OTHER | END 2022-05-05 | disposition home or self-care (01) | PROVIDERS: ATTEND Pain Medicine Interventional Pain Medicine | DX: M47.22 Other spondylosis with radiculopathy, cervical region (principal); M47.12 Other spondylosis with myelopathy, cervical region; M50.10 Cervical disc disorder with radiculopathy, unspecified cervical region; M50.00 Cervical disc disorder with myelopathy, unspecified cervical region; I10 Essential (primary) hypertension ==

== ENCOUNTER 2022-05-18 13:01 | Outpatient (RCR) | payer MEDICARE, OTHER | END 2022-06-02 | disposition home or self-care (01) | PROVIDERS: ATTEND Pain Medicine Interventional Pain Medicine | DX: M47.22 Other spondylosis with radiculopathy, cervical region (principal); M47.12 Other spondylosis with myelopathy, cervical region; M50.10 Cervical disc disorder with radiculopathy, unspecified cervical region; M50.00 Cervical disc disorder with myelopathy, unspecified cervical region; I10 Essential (primary) hypertension ==

== ENCOUNTER → 2022-05-20 | Outpatient (CLI) | payer MEDICARE, OTHER ==
--- NOTE | 2022-05-20 16:20 | Diagnostic Imaging Report ---
INDICATION: Six-month followup right breast nodule. COMPARISON: Correlation is made with the right breast ultrasound from 12/01/2021. FINDINGS: The lobulated solid nodule at the 11 o'clock location of the right breast 5-6 cm from the nipple is again noted measuring approximately 9 mm x 8 mm x 7 mm, similar to the prior examination. No new mass is detected. There is some vascularity along the margins of the nodule. IMPRESSION: Stable solid nodule at the 11 o'clock location of the right breast. Continued six-month followup is recommended. ACR BI-RADS Category 3: Probably benign findings. Dictated by: Dictated on workstation # [id number]
--- NOTE | 2022-05-20 16:27 | Diagnostic Imaging Report ---
INDICATION: Six-month followup right breast nodule. COMPARISON: Correlation is made with the prior mammograms from 12/01/2021 and 06/02/2021. TECHNIQUE: Unilateral right 2D and 3D diagnostic mammography was performed with CAD. FINDINGS: Scattered fibroglandular densities are identified in the right breast. The lobulated nodular density in the upper and slightly outer right breast at mid depth appears stable. There is a biopsy clip in the central right breast. There are scattered benign calcifications. No new mass or malignant-appearing microcalcifications are seen. IMPRESSION: Stable lobulated nodule in the upper outer right breast at mid depth. Even so, sonographic interrogation is scheduled for today for sonographic followup. ACR BI-RADS Category 0: Incomplete. (Needs additional imaging evaluation). Result letter will be mailed to the patient. Note: At least 10% of breast cancer is not imaged by mammography. Dictated on workstation # [id number]
== END ==
LOC: RAD 12:45
PROVIDERS: ATTEND Internal Medicine
DX: N63.11 Unspecified lump in the right breast, upper outer quadrant (principal)
CPT/HCPCS: 76642; 77065; G0279

== ENCOUNTER 2022-06-25 09:34 | Outpatient (RCR) | payer MEDICARE, OTHER | END 2022-07-03 | disposition home or self-care (01) | PROVIDERS: ATTEND Pain Medicine Interventional Pain Medicine | DX: M50.30 Other cervical disc degeneration, unspecified cervical region (principal); M47.22 Other spondylosis with radiculopathy, cervical region; M25.512 Pain in left shoulder; M25.511 Pain in right shoulder ==

== ENCOUNTER 2022-07-27 13:00 | Outpatient (RCR) | payer MEDICARE, OTHER | END 2022-08-02 | disposition home or self-care (01) | PROVIDERS: ATTEND Pain Medicine Interventional Pain Medicine | DX: M50.30 Other cervical disc degeneration, unspecified cervical region (principal); M47.22 Other spondylosis with radiculopathy, cervical region; M25.512 Pain in left shoulder; M25.511 Pain in right shoulder ==

== ENCOUNTER 2022-09-01 10:02 | Outpatient (RCR) | payer MEDICARE, OTHER ==
[~2022-09-01 10:02] MED LIST changes: -LOSA100T57 PO; +LOSA100T58 PO
== END 2022-09-02 | disposition home or self-care (01) ==
PROVIDERS: ATTEND Pain Medicine Interventional Pain Medicine
DX: M47.812 Spondylosis without myelopathy or radiculopathy, cervical region (principal); M50.10 Cervical disc disorder with radiculopathy, unspecified cervical region; M25.512 Pain in left shoulder; M25.511 Pain in right shoulder

== ENCOUNTER → 2022-10-02 | Outpatient (RCR) | payer MEDICARE, OTHER | END | disposition home or self-care (01) | PROVIDERS: ATTEND Pain Medicine Interventional Pain Medicine | DX: M47.812 Spondylosis without myelopathy or radiculopathy, cervical region (principal); M50.10 Cervical disc disorder with radiculopathy, unspecified cervical region; M25.512 Pain in left shoulder; M25.511 Pain in right shoulder; M47.12 Other spondylosis with myelopathy, cervical region; M47.22 Other spondylosis with radiculopathy, cervical region; I10 Essential (primary) hypertension ==

== ENCOUNTER 2022-10-20 10:11 | Outpatient (RCR) | payer MEDICARE, OTHER ==
[2022-10-30] MEDS ORDERED: NF-ALLE180 PO (08:58)
[2022-10-30] MEDS ORDERED: OLME-7 PO (08:58)
[2022-10-30] MEDS ORDERED: PANT40TA52 PO (08:58)
[2022-10-30] MEDS ORDERED: AMLO-251 PO (08:58)
[2022-10-30] MEDS ORDERED: MULT-1136 PO (08:58)
[2022-10-30] MEDS ORDERED: GABA300C PO (09:31)
[2022-10-30] MEDS ORDERED: ATOR20TA49 PO (13:39)
== END 2022-11-02 | disposition home or self-care (01) ==
PROVIDERS: ATTEND Pain Medicine Interventional Pain Medicine
DX: M50.10 Cervical disc disorder with radiculopathy, unspecified cervical region (principal); M47.12 Other spondylosis with myelopathy, cervical region; M47.22 Other spondylosis with radiculopathy, cervical region; I10 Essential (primary) hypertension

== ENCOUNTER 2022-10-30 04:42 | Observation (INO) | payer MEDICARE, OTHER ==
[~2022-10-30] VITALS: Ht 157.5 cm; Wt 82.6 kg
[2022-10-30] MEDS ORDERED: NITROGLYCERIN 0.4 MG SL TABS BTL 25'S SL PRN ×2 (05:15→07:00)
[2022-10-30] MEDS ORDERED: ASPIRIN 81 MG CHEWABLE TABLET PO ONE (05:15)
[2022-10-30 05:23] LABS: BASOPHILS % (AUTO) 1 % (0-10); EOSINOPHILS # (AUTO) 0.3 10^3/uL (0.0-0.3); EOSINOPHILS % (AUTO) 4 % (0-10); HEMATOCRIT 39 % (35-52); HEMOGLOBIN 12.9 g/dL (11.5-16.0); LYMPHOCYTES # (AUTO) 2.2 10^3/uL (1.0-4.0); LYMPHOCYTES % (AUTO) 34 % (12-44); MEAN CORPUSCULAR HEMOGLOBIN 31 pg (25-34); MEAN CORPUSCULAR HGB CONC 33 g/dL (32-36); MEAN CORPUSCULAR VOLUME 93 fL (80-99); MEAN PLATELET VOLUME 9.1 fL (9.0-12.2); MONOCYTES # (AUTO) 0.4 10^3/uL (0.0-1.0); MONOCYTES % (AUTO) 7 % (0-12); NEUTROPHILS # (AUTO) 3.5 10^3/uL (1.8-7.8); NEUTROPHILS % (AUTO) 55 % (42-75); PLATELET COUNT 305 10^3/uL (130-400); WHITE BLOOD COUNT 6.4 10^3/uL (4.3-11.0)
[2022-10-30 05:34] LABS: ALBUMIN 4.4 GM/DL (3.2-4.5); CHLORIDE 105 MMOL/L (98-107)
[2022-10-30 05:35] LABS: INR 0.9 (0.8-1.4); POTASSIUM 3.8 MMOL/L (3.6-5.0); PROTHROMBIN TIME PATIENT 12.5 SEC (12.2-14.7); SODIUM 141 MMOL/L (135-145)
[2022-10-30 05:36] LABS: AMYLASE 40 U/L (25-125)
[2022-10-30 05:37] LABS: GLUCOSE 96 MG/DL (70-105)
[2022-10-30 05:38] LABS: CARBON DIOXIDE 25 MMOL/L (21-32)
[2022-10-30 05:39] LABS: BILIRUBIN,TOTAL 0.3 MG/DL (0.1-1.0)
[2022-10-30 05:40] LABS: ALKALINE PHOSPHATASE 72 U/L (40-136)
[2022-10-30 05:41] LABS: CREATININE SERUM 0.76 MG/DL (0.60-1.30); GFR ESTIMATED 85
[2022-10-30 05:42] LABS: BUN/CREATININE RATIO 18
[2022-10-30 05:43] LABS: ALANINE AMINOTRANSFERASE 20 U/L (0-55); MAGNESIUM 2.4 MG/DL (1.6-2.4)
[2022-10-30 05:45] LABS: CREATINE KINASE 66 U/L (29-168); LIPASE 39 U/L (8-78)
--- NOTE | 2022-10-30 06:21 | ED Chest Pain ---
General Chief Complaint: Chest Pain Stated Complaint: CP,NAUSEA Nursing Triage Note: PT AMB TO RM 6 W C/O CP THAT WOKE HER UP AT 0330 THIS AM. PT A&OX4, REPORTS NAUSEA. Source: patient, old records History of Present Illness Date Seen by Provider: Oct 30, 2022 Time Seen by Provider: 04:56 Initial Comments PT ARRIVES VIA POV FROM HOME PT STATES THAT CHEST PAIN WOKE HER UP AROUND 0430--20 MINUTES PRIOR TO ARRIVAL PAIN IS IN CENTER OF HER CHEST AND DOES NOT RADIATE SHE ALSO HAS: -NAUSEA, NO VOMITING -DIZZINESS -SHORTNESS OF BREATH -SLIGHT SWEATS NO SWELLING IN LEGS OR FEET OR PAIN IN CALVES NO PALPITATIONS NO SYNCOPE PT HAS HAD SIMILAR SEVERAL YEARS AGO AND HAD A STRESS TEST THAT WAS NORMAL, PER PT ( PT WAS SEEN HERE AND TRANSFERRED TO [facility], DUE TO NO BEDS AVAILABLE HERE ) PT HAS HTN, MITRAL VALVE PROLAPSE, CHRONIC NECK AND BACK PAIN SHE SMOKED 1 PPD, NOW SMOKES 2 PACKS/WEEK SHE DRINKS "A COUPLE OF DRINKS" EVERY DAY SHE USES THC ON REGULAR BASIS--TOOK THC "GUMMY" TONIGHT BEFORE BED. PCP: DR. MOTT Allergies and Home Medications Allergies Coded Allergies: No Known Drug Allergies (Unverified , 05/04/15) Patient Home Medication List Home Medication List Reviewed: Yes Albuterol Sulfate (Ventolin Hfa) 1 Puff Puff, 2 PUFF IH Q6H PRN for SHORTNESS OF BREATH Prescribed by: RED MOTT on 11/27/17 1219 Amlodipine Besylate (Amlodipine Besylate) 2.5 Mg Tablet, 2.5 MG PO HS, (Reported) Entered as Reported by: MARILIN MENDOZA on 11/26/17 1430 Carboxymethylcellulose Sodium (Refresh Tears) 15 Ml Drops, 1-2 DROPS OU TID PRN for DRY EYES, (Reported) Entered as Reported by: MARILIN MENDOZA on 11/26/17 1435 Cefdinir (Cefdinir) 300 Mg Capsule, 300 MG PO BID Prescribed by: RED MOTT on 11/27/17 1219 Cefdinir (Cefdinir) 300 Mg Capsule, 300 MG PO BID Prescribed by: PÉREZ SANTOS on 08/09/21 0259 Chlorpheniramine Maleate (Chlorpheniramine Maleate) 4 Mg Tablet, 4 MG PO HS, (Reported) Entered as Reported by: WARREN BAEZA on 05/04/151941 Loratadine (Loratadine) 10 Mg Tablet, 10 MG PO HS, (Reported) Entered as Reported by: WARREN BAEZA on 05/04/151941 Losartan Potassium (Losartan Potassium) 100 Mg Tablet, 100 MG PO HS, (Reported) Entered as Reported by: MARILIN MENDOZA on 11/26/17 143 Meloxicam (Meloxicam) 15 Mg Tablet, 15 MG PO HS, (Reported) Entered as Reported by: MARILIN MENDOZA on 11/26/17 143 Metoprolol Succinate (Metoprolol Succinate) 50 Mg Tab.er.24h, 50 MG PO HS, (Reported) Entered as Reported by: MARILIN MENDOZA on 11/26/17 1430 Mometasone/Formoterol (Dulera 200 Mcg/5 Mcg Inhaler) 13 Gm Hfa.aer.ad, 1 PUFF IH BID, (Reported) Entered as Reported by: MARILIN MENDOZA on 11/26/17 1435 Prednisone (Prednisone) 10 Mg Tab.ds.pk, 10 MG PO DAILY Prescribed by: RED MOTT on 11/27/17 1219 Prednisone (Prednisone) 20 Mg Tab, 40 MG PO DAILY Prescribed by: KATERINE CORTES on 12/12/18 1821 Review of Systems Review of Systems Constitutional: see HPI, diaphoresis, dizziness EENTM: No Symptoms Reported Respiratory: See HPI, Shortness of Air Cardiovascular: See HPI, Chest Pain; Denies Edema, Denies Irregular Heart Rate; Lightheadedness; Denies Palpitations, Denies Syncope Gastrointestinal: See HPI; Denies Abdominal Pain; Nausea; Denies Vomiting Genitourinary: No Symptoms Reported Musculoskeletal: no symptoms reported Skin: no symptoms reported Psychiatric/Neurological: No Symptoms Reported Endocrine: No Symptoms Reported Hematologic/Lymphatic: No Symptoms Reported Past Ykfmzoy-Sreyzn-Eimtqp Hx Patient Social History Tobacco Use?: Yes Tobacco type used: Cigarettes Smoking Status: Current Everyday Smoker Use of E-Cig and/or Vaping dev: No Substance use?: Yes Substance type: Marijuana Substance frequency: Daily Alcohol Use?: Yes Alcohol type: Wine Alcohol Frequency: Daily Seasonal Allergies Seasonal Allergies: Yes Past Medical History Surgeries: Yes (CATARACTS, WISDOM TEETH REMOVED) Eye Surgery, Hysterectomy, Oophorectomy, Orthopedic Respiratory: Yes COPD Cardiac: Yes (MITRAL VALVE PROLAPSE) Heart Murmur, High Cholesterol, Hypertension, Valvular Heart Disease Neurological: No Reproductive Disorders: Yes (FIBROIDS ON BREASTS) 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, 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 Sexually Transmitted Disease: No HIV/AIDS: No Genitourinary: No Gastrointestinal: No Musculoskeletal: Yes (CHRONIC BACK AND NECK PAIN ;RIGHT SHOULDER SCOPE) Arthritis, Chronic Back Pain Endocrine: No HEENT: Yes (S/P BILAT CATARACT SURGERY) Cataract Cancer: No Psychosocial: No Integumentary: No Blood Disorders: No Adverse Reaction/Blood Tranf: No Family Medical History COPD SOCIAL HISTORY: -SMOKED UP TO 2 PPD, NOW 2 PACKS/WEEK -ETOH--DRINKS "A COUPLE OF DRINKS" EVERY DAY--HX OF MODERATE TO HEAVY USE -DRUGS--THC USE DAILY--THC "GUMMIES" PAST SURGICAL HISTORY: -HYSTERECTOMY-"PARTIAL"--ONE OVARY REMOVED -BILATERAL CATARACT SURGERY' -RIGHT SHOULDER SCOPE -WISDOM TEETH Physical Exam Vital Signs Vital Signs - First Documented 10/30/22 04:48 Temp 36.6 Pulse 70 Resp 18 B/P (MAP) 144/71 (95) Pulse Ox 96 O2 Delivery Room Air Capillary Refill : Less Than 3 Seconds Height, Weight, BMI Height: 5'2.00" Weight: 181lbs. 0.0oz. [id number]; 32.00 BMI Method:Stated General Appearance: No Apparent Distress, WD/WN HEENT: PERRL/EOMI Neck: Full Range of Motion, Normal Inspection, Non Tender, Supple; No Carotid Bruit, No JVD Respiratory: Chest Non Tender, Normal Breath Sounds, No Accessory Muscle Use, No Respiratory Distress Cardiovascular: Regular Rate, Rhythm, No Edema, No JVD, No Murmur, Normal Peripheral Pulses Gastrointestinal: Non Tender, Soft Extremity: Normal Capillary Refill, Normal Inspection, Normal Range of Motion, Non Tender, No Calf Tenderness, No Pedal Edema Neurologic/Psychiatric: Alert, Oriented x3, No Motor/Sensory Deficits, Normal Mood/Affect, speaker wirer II-XII Norm as Tested Skin: Normal Color, Warm/Dry Progress/Results/Core Measures Results/Orders Lab Results Laboratory Tests Test 10/30/22 05:16 Range/Units White Blood Count 6.4 4.3-11.0 10^3/uL Red Blood Count 4.16 3.80-5.11 10^6/uL Hemoglobin 12.9 11.5-16.0 g/dL Hematocrit 39 35-52 % Mean Corpuscular Volume 93 80-99 fL Mean Corpuscular Hemoglobin 31 25-34 pg Mean Corpuscular Hemoglobin Concent 33 32-36 g/dL Red Cell Distribution Width 13.1 10.0-14.5 % Platelet Count 305 130-400 10^3/uL Mean Platelet Volume 9.1 9.0-12.2 fL Immature Granulocyte % (Auto) 0 % Neutrophils (%) (Auto) 55 42-75 % Lymphocytes (%) (Auto) 34 12-44 % Monocytes (%) (Auto) 7 0-12 % Eosinophils (%) (Auto) 4 0-10 % Basophils (%) (Auto) 1 0-10 % Neutrophils # (Auto) 3.5 1.8-7.8 10^3/uL Lymphocytes # (Auto) 2.2 1.0-4.0 10^3/uL Monocytes # (Auto) 0.4 0.0-1.0 10^3/uL Eosinophils # (Auto) 0.3 0.0-0.3 10^3/uL Basophils # (Auto) 0.0 0.0-0.1 10^3/uL Immature Granulocyte # (Auto) 0.0 0.0-0.1 10^3/uL Prothrombin Time 12.5 12.2-14.7 SEC INR Comment 0.9 0.8-1.4 Activated Partial Thromboplast Time 32 24-35 SEC Sodium Level 141 135-145 MMOL/L Potassium Level 3.8 3.6-5.0 MMOL/L Chloride Level 105 98-107 MMOL/L Carbon Dioxide Level 25 21-32 MMOL/L Anion Gap 11 5-14 MMOL/L Blood Urea Nitrogen 14 7-18 MG/DL Creatinine 0.76 0.60-1.30 MG/DL Estimat Glomerular Filtration Rate 85 BUN/Creatinine Ratio 18 Glucose Level 96 70-105 MG/DL Calcium Level 10.0 8.5-10.1 MG/DL Corrected Calcium 9.7 8.5-10.1 MG/DL Magnesium Level 2.4 1.6-2.4 MG/DL Total Bilirubin 0.3 0.1-1.0 MG/DL Aspartate Amino Transf (AST/SGOT) 17 5-34 U/L Alanine Aminotransferase (ALT/SGPT) 20 0-55 U/L Alkaline Phosphatase 72 40-136 U/L Total Creatine Kinase 66 29-168 U/L Creatine Kinase MB 1.0 <6.6 NG/ML Myoglobin 25.4 10.0-92.0 NG/ML Troponin I < 0.028 <0.028 NG/ML B-Type Natriuretic Peptide 23.3 <100.0 PG/ML Total Protein 7.0 6.4-8.2 GM/DL Albumin 4.4 3.2-4.5 GM/DL Amylase Level 40 25-125 U/L Lipase 39 8-78 U/L My Orders Orders - ELISHA RYAN DO Ekg Tracing (10/30/22 04:49) Cbc With Automated Diff (10/30/22 05:04) Magnesium (10/30/22 05:04) Chest 1 View, Ap/Pa Only (10/30/22 05:04) Comprehensive Metabolic Panel (10/30/22 05:04) Myoglobin Serum (10/30/22 05:04) Protime With Inr (10/30/22 05:04) Partial Thromboplastin Time (10/30/22 05:04) O2 (10/30/22 05:04) Monitor-Rhythm Ecg Trace Only (10/30/22 05:04) Ed Iv/Invasive Line Start (10/30/22 05:04) Creatine Kinase (10/30/22 05:04) Creatine Kinase Mb (10/30/22 05:04) Lipase (10/30/22 05:04) Amylase (10/30/22 05:04) Bnp [place] (10/30/22 05:04) Troponin I [place] (10/30/22 05:04) Nitroglycerin 0.4 Mg Btl 25's (Nitrostat (10/30/22 05:15) Aspirin Chewable Tablet (Aspirin Chewabl (10/30/22 05:15) Ed Admission (Communication) (10/30/22 06:18) Medications Given in ED Current Medications Medications Dose Ordered Sig/Bernardo Route Start Time Stop Time Status Last Admin Dose Admin Aspirin 324 mg ONCE ONCE PO 10/30/22 05:15 10/30/22 05:16 DC 7/28/23 05:10 324 MG Vital Signs/I&O 10/30/22 04:48 Temp 36.6 Pulse 70 Resp 18 B/P (MAP) 144/71 (95) Pulse Ox 96 O2 Delivery Room Air Blood Pressure Mean: 95 Progress Progress Note : Progress Note VITALS ON ARRIVAL: TEMP 36.6, HR 70, BP 144/71, RR 18, O2 SAT 96% ON ROOM AIR CHEST PAIN PROTOCOL INITIATED GIVEN: -ASPIRIN NTG HELD PT IS NOT CURRENTLY HAVING ANY PAIN EKG IS UNREMARKABLE CXR IS UNREMARKABLE LABS ARE ALL UNREMARKABLE VITALS STABLE PT HAS NOT HAD ANY PAIN DURING ER STAY DISCUSSED TEST RESULTS, NEED FOR ADMIT AND PT IS AGREEABLE TO PLAN REVIEWED PRIOR RECORDS, INCLUDING ER VISITS, ADMITS / H&P'S /DISCHARGE SUMMARIES, TESTS/PROCEDURES. Initial ECG Impression Date: Oct 30, 2022 Initial ECG Impression Time: 05:01 Initial ECG Rate: 70 Initial ECG Rhythm: Normal Sinus Initial ECG Intervals: Normal Initial ECG Impression: Normal Initial ECG Comparisson: Unchanged Comment INTERPRETED BY ME Departure Communication (Admissions) 1344--SPOKE WITH DR. MOTT, ACCEPTS PT FOR ADMIT. SHE WILL DO ADMIT ORDERS. Impression Primary Impression: Chest pain Additional Impressions: Hypertension Smoker Daily consumption of alcohol COPD Disposition: ADMITTED INPATIENT Condition: Improved Admissions Decision to Admit Reason: Admit from ER (General) Decision to Admit/Date: Oct 30, 2022 Time/Decision to Admit Time: 05:45 Departure-Patient Inst. Referrals: RED MOTT DO (PCP/Family) Primary Care Physician ELISHA RYAN DO Oct 30, 2022 06:21
[2022-10-30] MEDS ORDERED: LACTULOSE SYRUP 10GM/15ML (ENULOSE) 30ML UDC PO PRN (07:00)
[2022-10-30] MEDS ORDERED: ACETAMINOPHEN 325 MG TABLET PO PRN (07:00)
[2022-10-30] MEDS ORDERED: morphine INJ 4 MG/ML 1 ML (VIAL/SYRINGE) IV PRN (07:00)
[2022-10-30] MEDS ORDERED: ANTACID SUSP 30 ML UDC (MYLANTA) PO PRN (07:00)
[2022-10-30] MEDS ORDERED: ENOXAPARIN 40 MG/0.4 ML (LOVENOX) SYR SC SCH (07:00)
[2022-10-30] MEDS ORDERED: CALCIUM CARBONATE 500 MG CHEW TABLET PO PRN (07:00)
[2022-10-30] MEDS ORDERED: ONDANSETRON 4 MG/2 ML (SDV) Z0FRAN IV PRN (07:00)
[2022-10-30] MEDS ORDERED: MILK OF MAGNESIA 400 MG/5 ML 30 ML UDC PO PRN (07:00)
[2022-10-30] MEDS ORDERED: diphenhydrAMINE 25 MG TAB (BENADRYL) PO PRN (07:00)
[2022-10-30] MEDS ORDERED: polyethylene glycoL POWDER 17 GM (MIRALAX) PACK PO PRN (07:00)
[2022-10-30] MEDS ORDERED: ONDANSETRON 4 MG (ZOFRAN) ORAL DISSOLVE TAB PO PRN (07:00)
[2022-10-30] MEDS ORDERED: NS IV 1000 ML 1,000 ML IV SCH (07:00)
[2022-10-30] MEDS ORDERED: diphenhydrAMINE 50 MG/ML INJ (BENADRYL) IVP PRN (07:00)
[2022-10-30] MEDS ORDERED: BISACODYL 10 MG SUPPOSITORY PR PRN (07:00)
[2022-10-30] MEDS ORDERED: ALPRAZolam 0.5 MG TABLET PO PRN (07:00)
[2022-10-30] MEDS ORDERED: PATIENT MAY USE OWN MEDS, ALL PO SCH (07:00)
[2022-10-30] MEDS ORDERED: MELATONIN 3 MG TABLET PO PRN (07:00)
[2022-10-30 07:06] LABS: TRIGLYCERIDES 335 MG/DL (<150); VLDL CHOLESTEROL 67 MG/DL (5-40)
[2022-10-30 07:11] LABS: CHOLESTEROL 226 MG/DL (< 200)
[2022-10-30 07:12] LABS: HDL CHOLESTEROL 53 MG/DL (40-60)
[2022-10-30 07:50] VITALS: BP 139/76
[2022-10-30 08:00] VITALS: BP 112/92
--- NOTE | 2022-10-30 08:05 | Short Stay Summary ---
History of Present Illness History of Present Illness Reason for visit/HPI CC: Chest pain HPI: This is a 67yo[facility] clinic patient of mine who has a h/o HTN, HLP (not willing to take statin) and former smoker who presents to the ER with abrupt onset of chest pain and was placed in observation and underwent EST and consultation by Dr Patel. Stress test was normal so she will be DC home and statin will be Rxed. Date of Admission Oct 30, 2022 at 06:21 Date of Discharge 10/30/22 Time Seen by Provider: 12:00 Attending Physician Monique Mott DO Admitting Physician Admitting Physician: Monique Mott DO Attending Physician: Monique Mott DO Consult Allergies and Home Medications Allergies Coded Allergies: No Known Drug Allergies (Unverified , 05/04/15) Patient Home Medication List Home Medication List Reviewed: Yes Amlodipine Besylate (Amlodipine Besylate) 10 Mg Tablet, 10 MG PO HS, (Reported) Entered as Reported by: PHLYLIS CUNNINGHAM on 10/30/22857 Last Action: Reviewed Atorvastatin Calcium (Lipitor) 20 Mg Tablet, 20 MG PO DAILY Prescribed by: MONIQUE MOTT on 10/30/22 1339 Fexofenadine HCl (Fexofenadine HCl) 180 Mg Tablet, 180 MG PO HS, (Reported) Entered as Reported by: PHYLLIS CUNNINGHAM on 10/30/22857 Last Action: Reviewed Gabapentin (Neurontin) 300 Mg Capsule, 300 MG PO HS, (Reported) Entered as Reported by: PHYLLIS CUNNINGHAM on 10/30/22 0931 Last Action: Reviewed Meloxicam (Meloxicam) 15 Mg Tablet, 15 MG PO HS, (Reported) Entered as Reported by: MARILIN MENDOZA on 11/26/17 143 Last Action: Reviewed Metoprolol Succinate (Metoprolol Succinate) 50 Mg Tab.er.24h, 50 MG PO HS, (Reported) Entered as Reported by: MARILIN MENDOZA on 11/26/17 143 Last Action: Reviewed Multivitamin (Multivitamin) 1 Each Tablet, 1 EACH PO HS, (Reported) Entered as Reported by: PHYLLIS CUNNINGHAM on 10/30/2258 Last Action: Reviewed Olmesartan/Hydrochlorothiazide (Olmesartan-Hctz 20-12.5 mg Tab) 20 Mg-12.5 Mg Tablet, 1 EA PO HS, (Reported) Entered as Reported by: PHYLLIS CUNNINGHAM on 10/30/22857 Last Action: Reviewed Pantoprazole Sodium (Pantoprazole Sodium) 40 Mg Tablet.dr, 40 MG PO HS, (Reported) Entered as Reported by: PHYLLIS CUNNINGHAM on 10/30/22857 Last Action: Reviewed Discontinued Medications Albuterol Sulfate (Ventolin Hfa) 1 Puff Puff, 2 PUFF IH Q6H PRN for SHORTNESS OF BREATH Discontinued Reason: No Longer Taking Prescribed by: MONIQUE MOTT on 11/27/171218 Last Action: Discontinued Amlodipine Besylate (Amlodipine Besylate) 2.5 Mg Tablet, 2.5 MG PO HS, (Reported) Discontinued Reason: No Longer Taking Entered as Reported by: MARILIN MENDOZA on 11/26/171429 Last Action: Discontinued Carboxymethylcellulose Sodium (Refresh Tears) 15 Ml Drops, 1-2 DROPS OU TID PRN for DRY EYES, (Reported) Discontinued Reason: No Longer Taking Entered as Reported by: MARILIN MENDOZA on 11/26/171434 Last Action: Discontinued Cefdinir (Cefdinir) 300 Mg Capsule, 300 MG PO BID Discontinued Reason: No Longer Taking Prescribed by: MONIQUE MOTT on 11/27/171218 Last Action: Discontinued Cefdinir (Cefdinir) 300 Mg Capsule, 300 MG PO BID Discontinued Reason: No Longer Taking Prescribed by: PÉREZ SANTOS on 08/09/21 0259 Last Action: Discontinued Chlorpheniramine Maleate (Chlorpheniramine Maleate) 4 Mg Tablet, 4 MG PO HS, (Reported) Discontinued Reason: No Longer Taking Entered as Reported by: WARREN BAEZA on 05/04/151941 Last Action: Discontinued Loratadine (Loratadine) 10 Mg Tablet, 10 MG PO HS, (Reported) Discontinued Reason: No Longer Taking Entered as Reported by: WARREN BAEZA on 05/04/151941 Last Action: Discontinued Losartan Potassium (Losartan Potassium) 100 Mg Tablet, 100 MG PO HS, (Reported) Discontinued Reason: No Longer Taking Entered as Reported by: MARILIN MENDOZA on 11/26/171429 Last Action: Discontinued Mometasone/Formoterol (Dulera 200 Mcg/5 Mcg Inhaler) 13 Gm Hfa.aer.ad, 1 PUFF IH BID, (Reported) Discontinued Reason: No Longer Taking Entered as Reported by: MARILIN MENDOZA on 11/26/17 1435 Last Action: Discontinued Prednisone (Prednisone) 10 Mg Tab.ds.pk, 10 MG PO DAILY Discontinued Reason: No Longer Taking Prescribed by: MONIQUE MOTT on 11/27/17 1219 Last Action: Discontinued Prednisone (Prednisone) 20 Mg Tab, 40 MG PO DAILY Discontinued Reason: No Longer Taking Prescribed by: KATERINE CORTES on 12/12/18 1821 Last Action: Discontinued Past Iraanwg-Gaevex-Xenajk Hx Patient Social History Marrital Status: Employed/Student: retired Alcohol Beverage of Choice: Wine Smoking Status: Former Smoker Recent Hopitalizations: No Alcohol Use?: Yes Substance type: Marijuana Pt feels they are or have been: No Tobacco type used: Cigarettes Seasonal Allergies Seasonal Allergies: Yes Surgeries Yes (CATARACTS, WISDOM TEETH REMOVED) Eye Surgery, Hysterectomy, Oophorectomy, Orthopedic Respiratory Yes Cardiovascular Yes (MITRAL VALVE PROLAPSE) Heart Murmur, High Cholesterol, Hypertension, Valvular Heart Disease Neurological No Reproductive System Hx Reproductive Disorders: Yes (FIBROIDS ON BREASTS) Sexually Transmitted Disease: No 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, 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 Genitourinary No Gastrointestinal No Musculoskeletal Yes (CHRONIC BACK AND NECK PAIN ;RIGHT SHOULDER SCOPE) Arthritis, Chronic Back Pain Endocrine History of Endocrine Disorders: No HEENT History of HEENT Disorders: Yes (S/P BILAT CATARACT SURGERY) HEENT Disorders: Cataract Cancer No Psychosocial History of Psychiatric Problem: No Integumentary History of Skin or Integumenta: No Blood Transfusions History of Blood Disorders: No Adverse Reaction to a Blood Tr: No Family Medical History Significant Family History: COPD Other Significan Family Hx: SOCIAL HISTORY: -SMOKED UP TO 2 PPD, NOW 2 PACKS/WEEK -ETOH--DRINKS "A COUPLE OF DRINKS" EVERY DAY--HX OF MODERATE TO HEAVY USE -DRUGS--THC USE DAILY--THC "GUMMIES" PAST SURGICAL HISTORY: -HYSTERECTOMY-"PARTIAL"--ONE OVARY REMOVED -BILATERAL CATARACT SURGERY' -RIGHT SHOULDER SCOPE -WISDOM TEETH Review of Systems Constitutional: see HPI, malaise, weakness Cardiovascular: chest pain Physical Exam Vital Signs Vital Signs - First Documented 10/30/22 04:48 Temp 36.6 Pulse 70 Resp 18 B/P (MAP) 144/71 (95) Pulse Ox 96 O2 Delivery Room Air Capillary Refill : Less Than 3 Seconds Height, Weight, BMI Height: 5'2.00" Weight: 181lbs. 0.0oz. 82.675628iz; 33.29 BMI Method:Stated General Appearance: No Apparent Distress, WD/WN, Chronically ill Eyes: Bilateral Eye Normal Inspection, Bilateral Eye PERRL, Bilateral Eye EOMI HEENT: PERRL/EOMI, Normal ENT Inspection, Pharynx Normal Neck: Full Range of Motion, Normal Inspection, Non Tender, Supple, Carotid Bruit Respiratory: Chest Non Tender, Lungs Clear, Normal Breath Sounds, No Accessory Muscle Use, No Respiratory Distress Cardiovascular: Regular Rate, Rhythm, No Edema, No Gallop, No JVD, No Murmur, Normal Peripheral Pulses Gastrointestinal: Normal Bowel Sounds, No Organomegaly, No Pulsatile Mass, Non Tender, Soft Back: Normal Inspection, No CVA Tenderness, No Vertebral Tenderness Extremity: Normal Capillary Refill, Normal Inspection, Normal Range of Motion, Non Tender, No Calf Tenderness, No Pedal Edema Neurologic/Psychiatric: Alert, Oriented x3, No Motor/Sensory Deficits, Normal Mood/Affect Skin: Normal Color, Warm/Dry Lymphatic: No Adenopathy Clinical Quality Measures AMI/AHF: ASA po 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) Short Stay Diagnosis Discharge Diagnosis-Short Stay Admission Diagnosis: Chest pain HTN HLP Former smoker Final Discharge Diagnosis: Chest pain HTN HLP Former smoker Cervical spine radiculopathy GERD Conclusion Labs Laboratory Tests 10/30/22 05:16: White Blood Count 6.4, Red Blood Count 4.16, Hemoglobin 12.9, Hematocrit 39, Mean Corpuscular Volume 93, Mean Corpuscular Hemoglobin 31, Mean Corpuscular Hemoglobin Concent 33, Red Cell Distribution Width 13.1, Platelet Count 305, Mean Platelet Volume 9.1, Immature Granulocyte % (Auto) 0, Neutrophils (%) (Auto) 55, Lymphocytes (%) (Auto) 34, Monocytes (%) (Auto) 7, Eosinophils (%) (Auto) 4, Basophils (%) (Auto) 1, Neutrophils # (Auto) 3.5, Lymphocytes # (Auto) 2.2, Monocytes # (Auto) 0.4, Eosinophils # (Auto) 0.3, Basophils # (Auto) 0.0, Immature Granulocyte # (Auto) 0.0, Prothrombin Time 12.5, INR Comment 0.9, Activated Partial Thromboplast Time 32, Sodium Level 141, Potassium Level 3.8, Chloride Level 105, Carbon Dioxide Level 25, Anion Gap 11, Blood Urea Nitrogen 14, Creatinine 0.76, Estimat Glomerular Filtration Rate 85, BUN/Creatinine Ratio 18, Glucose Level 96, Calcium Level 10.0, Corrected Calcium 9.7, Magnesium Level 2.4, Total Bilirubin 0.3, Aspartate Amino Transf (AST/SGOT) 17, Alanine Aminotransferase (ALT/SGPT) 20, Alkaline Phosphatase 72, Total Creatine Kinase 66, Creatine Kinase MB 1.0, Myoglobin 25.4, Troponin I < 0.028, B-Type Natriuretic Peptide 23.3, Total Protein 7.0, Albumin 4.4, Triglycerides Level 335H, Cholesterol Level 226H, LDL Cholesterol Direct 138H, VLDL Cholesterol 67H, HDL Cholesterol 53, Amylase Level 40, Lipase 39, Serum Alcohol < 10 Conclusion/Plan Monitor closely DC home MONIQUE MOTT DO Oct 30, 2022 08:05
--- NOTE | 2022-10-30 08:39 | Diagnostic Imaging Report ---
INDICATION: Chest pain. Compared 07/08/2018 FINDINGS: The lungs are clear. There is no failure, effusion or pneumothorax. IMPRESSION: Unremarkable frontal chest Dictated by: Dictated on workstation # [id number]
[2022-10-30] MEDS ORDERED: MULT-1136 PO (08:58)
[2022-10-30] MEDS ORDERED: OLME-7 PO (08:58)
[2022-10-30] MEDS ORDERED: PANT40TA52 PO (08:58)
[2022-10-30] MEDS ORDERED: AMLO-251 PO (08:58)
[2022-10-30] MEDS ORDERED: NF-ALLE180 PO (08:58)
[2022-10-30] MEDS ORDERED: SENNOSIDES 8.6 MG (SENOKOT) TAB PO SCH (09:00)
[2022-10-30] MEDS ORDERED: ASPIRIN enteric coated 81MG TABLET PO SCH (09:00)
[2022-10-30] MEDS ORDERED: DOCUSATE SODIUM 100 MG CAPSULE PO SCH (09:00)
--- NOTE | 2022-10-30 09:12 | Consultation-Cardiology ---
HPI-Cardiology Cardiology Consultation Date of Consultation 10/30/22 Date of Admission Time Seen by Provider: 09:09 Indication: Chest pain HPI 67-year-old lady with history of hypertension, borderline hyperlipidemia and tobaccoism woke up early this morning with chest pain retrosternal dull in nature associated with mild shortness of breath, nausea, no vomiting. Lasted for short period of time and resolved spontaneously had similar episode about 5 years ago. No recent episode of chest pain, has been having back and neck pain. No palpitation. No syncope, no previous cardiac history Home Medications & Allergies Allergies: Coded Allergies: No Known Drug Allergies (Unverified , 05/04/15) Home Medication List Reviewed: Yes [id number]-[id number] Hx Patient Social History Marital Status: Employed/Student: retired Smoking Status: Current Everyday Smoker Type Used: Cigarettes Recent Hopitalizations: No Alcohol Use?: Yes Substance type: Marijuana Past Medical History Discussed below Family Medical History Significant Family History: No Pertinent Family Hx, COPD Review of Systems-General Review of Systems Constitutional: see HPI, diaphoresis, dizziness EENTM: see HPI, no symptoms reported Respiratory: no symptoms reported, see HPI Cardiovascular: see HPI, chest pain; No edema, No Hx of Intervention, No palpitations, No syncope, No vascular heart diseas, No other Gastrointestinal: see HPI, nausea Genitourinary: no symptoms reported, see HPI Musculoskeletal: no symptoms reported Skin: no symptoms reported Psychiatric/Neurological: No Symptoms Reported Reviewed Test Results Reviewed Test Results Lab Laboratory Tests Test 10/30/22 05:16 Range/Units White Blood Count 6.4 4.3-11.0 10^3/uL Red Blood Count 4.16 3.80-5.11 10^6/uL Hemoglobin 12.9 11.5-16.0 g/dL Hematocrit 39 35-52 % Mean Corpuscular Volume 93 80-99 fL Mean Corpuscular Hemoglobin 31 25-34 pg Mean Corpuscular Hemoglobin Concent 33 32-36 g/dL Red Cell Distribution Width 13.1 10.0-14.5 % Platelet Count 305 130-400 10^3/uL Mean Platelet Volume 9.1 9.0-12.2 fL Immature Granulocyte % (Auto) 0 % Neutrophils (%) (Auto) 55 42-75 % Lymphocytes (%) (Auto) 34 12-44 % Monocytes (%) (Auto) 7 0-12 % Eosinophils (%) (Auto) 4 0-10 % Basophils (%) (Auto) 1 0-10 % Neutrophils # (Auto) 3.5 1.8-7.8 10^3/uL Lymphocytes # (Auto) 2.2 1.0-4.0 10^3/uL Monocytes # (Auto) 0.4 0.0-1.0 10^3/uL Eosinophils # (Auto) 0.3 0.0-0.3 10^3/uL Basophils # (Auto) 0.0 0.0-0.1 10^3/uL Immature Granulocyte # (Auto) 0.0 0.0-0.1 10^3/uL Prothrombin Time 12.5 12.2-14.7 SEC INR Comment 0.9 0.8-1.4 Activated Partial Thromboplast Time 32 24-35 SEC Sodium Level 141 135-145 MMOL/L Potassium Level 3.8 3.6-5.0 MMOL/L Chloride Level 105 98-107 MMOL/L Carbon Dioxide Level 25 21-32 MMOL/L Anion Gap 11 5-14 MMOL/L Blood Urea Nitrogen 14 7-18 MG/DL Creatinine 0.76 0.60-1.30 MG/DL Estimat Glomerular Filtration Rate 85 BUN/Creatinine Ratio 18 Glucose Level 96 70-105 MG/DL Calcium Level 10.0 8.5-10.1 MG/DL Corrected Calcium 9.7 8.5-10.1 MG/DL Magnesium Level 2.4 1.6-2.4 MG/DL Total Bilirubin 0.3 0.1-1.0 MG/DL Aspartate Amino Transf (AST/SGOT) 17 5-34 U/L Alanine Aminotransferase (ALT/SGPT) 20 0-55 U/L Alkaline Phosphatase 72 40-136 U/L Total Creatine Kinase 66 29-168 U/L Creatine Kinase MB 1.0 <6.6 NG/ML Myoglobin 25.4 10.0-92.0 NG/ML Troponin I < 0.028 <0.028 NG/ML B-Type Natriuretic Peptide 23.3 <100.0 PG/ML Total Protein 7.0 6.4-8.2 GM/DL Albumin 4.4 3.2-4.5 GM/DL Triglycerides Level 335 H <150 MG/DL Cholesterol Level 226 H < 200 MG/DL LDL Cholesterol Direct 138 H 1-129 MG/DL VLDL Cholesterol 67 H 5-40 MG/DL HDL Cholesterol 53 40-60 MG/DL Amylase Level 40 25-125 U/L Lipase 39 8-78 U/L Serum Alcohol < 10 <10 MG/DL Physical Exam Physical Exam Vital Signs Vital Signs - First Documented 10/30/22 04:48 Temp 36.6 Pulse 70 Resp 18 B/P (MAP) 144/71 (95) Pulse Ox 96 O2 Delivery Room Air Capillary Refill : Less Than 3 Seconds Height, Weight, BMI Height: 5'2.00" Weight: 181lbs. 0.0oz. 82.835899re; 33.29 BMI Method:Stated General Appearance: No Apparent Distress, WD/WN Eyes: Bilateral Eye Normal Inspection, Bilateral Eye PERRL, Bilateral Eye EOMI HEENT: PERRL/EOMI Neck: Full Range of Motion, Normal Inspection, Non Tender, Supple; No Carotid Bruit, No JVD Respiratory: Chest Non Tender, Normal Breath Sounds, No Accessory Muscle Use, No Respiratory Distress Cardiovascular: Regular Rate, Rhythm, No Edema, No JVD, No Murmur, Normal Peripheral Pulses Gastrointestinal: Non Tender, Soft Back: Normal Inspection, No CVA Tenderness, No Vertebral Tenderness Extremity: Normal Capillary Refill, Normal Inspection, Normal Range of Motion, Non Tender, No Calf Tenderness, No Pedal Edema Neurologic/Psychiatric: Alert, Oriented x3, No Motor/Sensory Deficits, Normal 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
[2022-10-30] MEDS ORDERED: GABA300C PO (09:31)
[2022-10-30] MEDS ORDERED: RT-ALBUTEROL SULF 2.5 MG/3 ML PRE-MIX VIAL INH PRN (11:15)
[2022-10-30] MEDS ORDERED: CATHETER FLUSH 10 ML SYR IVP PRN (11:30)
[2022-10-30 12:19] VITALS: BP 111/57
--- NOTE | 2022-10-30 13:29 | Cardiology Stress Test Report ---
Stress Test Report Date of Procedure/Referring: Date of Procedure: Oct 30, 2022 PCP Monique Torres DO Admitting Physician Admitting Physician: Monique Torres DO Attending Physician: Monique Torres DO Indications: CP Baseline Heart Rate: 58 Baseline Blood Pressure: Blood Pressure Systolic: 111 Blood Pressure Diastolic: 57 Vital Signs Date Time Temp Pulse Resp B/P (MAP) Pulse Ox O2 Delivery O2 Flow Rate FiO2 10/30/22 04:48 36.6 70 18 144/71 (95) 96 Room Air 10/30/22 07:50 21 Baseline Vital Signs Vital Signs Date Time Temp Pulse Resp B/P (MAP) Pulse Ox O2 Delivery O2 Flow Rate FiO2 10/30/22 04:48 36.6 70 18 144/71 (95) 96 Room Air 10/30/22 07:50 21 Baseline EKG: Baseline EKG: NSR Summary: After explaining the procedure and details to the patient, she signed the consent and was brought to the stress nuclear laboratory. Patient exercised on standard Gopal protocol, EKG, heart rate and blood pressure were monitored continuously, resting and stress doses of radio tracer were injected, imaging was acquired and reviewed in the short axis, horizontal long axis and vertical long axis views Patient was able to exercise for a total of 7 minutes on Gopal protocol, METs 8.5 Maximum heart rate 126 Maximum blood pressure 206/112 Stress EKG, Minimal nondiagnostic changes Recovery EKG, Return to baseline TID: 0.98 SSS: 1 SDS: 1 EF: 78 Conclusion: Good exercise tolerance for 7 minutes on standard Gopal protocol, 8.5 METS achieving 83% of maximal expected heart rate Appropriate heart rate response to exercise with hypertensive response to exercise with peak blood pressure 206/112 return to baseline during recovery Minimal EKG changes with exercise return to baseline during recovery Breast attenuation affecting the quality of the images there is mild decrease uptake at the anterior apical segment with mild reversibility overall the breast attenuation is affecting the quality of these images. Mainly nondiagnostic Normal left ventricular size, ejection fraction 78% Copy Copies To 1: MONIQUE TORRES BASHAR J MD Oct 30, 2022 13:29
[2022-10-30] MEDS ORDERED: ATOR20TA49 PO (13:39)
[2022-10-30] MEDS ORDERED: RT-ALBUTEROL SULF 2.5 MG/3 ML PRE-MIX VIAL INH SCH (21:00)
== END 2022-10-30 14:50 | disposition home or self-care (01) ==
LOC: EDUNIT# 04:42 → ER 04:47 → ICU 06:21
PROVIDERS: ADMIT Internal Medicine; ATTEND Internal Medicine
DX: R07.9 Chest pain, unspecified (principal); I10 Essential (primary) hypertension; E78.5 Hyperlipidemia, unspecified; M54.12 Radiculopathy, cervical region; K21.9 Gastro-esophageal reflux disease without esophagitis; M54.2 Cervicalgia; J44.9 Chronic obstructive pulmonary disease, unspecified; Z87.891 Personal history of nicotine dependence; F10.90 Alcohol use, unspecified, uncomplicated; E66.9 Obesity, unspecified; Z68.33 Body mass index [BMI] 33.0-33.9, adult
CPT/HCPCS: 71045; 78452; 80053; 80061; 82150; 82550; 82553; 83690; 83735; 83874; 83880; 84484; 85025; 85610; 85730; 93005; 93017; 93041; 99284; A9502; C8929; G0480; 36415; 80320; 93306; 96372

== ENCOUNTER → 2022-12-03 | Outpatient (RCR) | payer MEDICARE, OTHER ==
[~2022-12-03] MED LIST changes: +AMLO-251 PO; +ATOR20TA49 PO; +GABA300C PO; +MULT-1136 PO; +NF-ALLE180 PO; +OLME-7 PO; +PANT40TA52 PO
== END | disposition home or self-care (01) ==
PROVIDERS: ATTEND Pain Medicine Interventional Pain Medicine
DX: M50.10 Cervical disc disorder with radiculopathy, unspecified cervical region (principal); M47.12 Other spondylosis with myelopathy, cervical region; M47.22 Other spondylosis with radiculopathy, cervical region; M25.512 Pain in left shoulder; M25.511 Pain in right shoulder

== ENCOUNTER → 2022-12-10 | Outpatient (CLI) | payer MEDICARE, OTHER ==
--- NOTE | 2022-12-10 15:48 | Diagnostic Imaging Report ---
Indication: Six-month follow-up right breast nodule. Correlation is made with the prior ultrasound from 05/20/2022. Sonographic interrogation of the 11:00 location of the right breast, 5 to 6 cm from the nipple was evaluated. Previously noted hypoechoic nodule is again noted, now measuring 7 mm x 6 mm x 7 mm compared with 9 x 8 x 7 mm on prior. This now shows 2 years of stability. No new masses are seen. IMPRESSION: BI-RADS Category 2 Stable to slight decrease in size of the hypoechoic nodule at the 11:00 location of the right breast when compared with study 6 months earlier. This now shows 2 years of stability. The patient may return to routine annual screening mammography. ACR BI-RADS Category 2: Benign findings. Result letter will be mailed to the patient. Note: At least 10% of breast cancer is not imaged by mammography. Dictated by: Dictated on workstation # [id number]
--- NOTE | 2022-12-10 16:20 | Diagnostic Imaging Report ---
Indication: Six-month follow-up right breast nodule. Correlation is made with prior mammograms 05/20/2022, 12/01/2021 and 06/02/2021. 2-D and 3-D bilateral diagnostic mammography was performed with CAD. Scattered fibroglandular densities are noted bilaterally. The lobulated nodule in the upper central right breast appears stable. The nodule in the medial left breast is stable. No new mass is detected. No malignant-appearing microcalcifications are seen. There are benign calcifications bilaterally. Axillae are unremarkable. IMPRESSION: BI-RADS 0. Stable bilateral mammograms. The nodule in the upper central right breast is stable but even so, further evaluation of this nodule with ultrasound is recommended and will be performed today. ACR BI-RADS Category 0: Incomplete. (Needs additional imaging evaluation). Result letter will be mailed to the patient. Note: At least 10% of breast cancer is not imaged by mammography. Dictated by: Dictated on workstation # [id number]
== END ==
LOC: RAD 13:34
PROVIDERS: ATTEND Internal Medicine
DX: N63.11 Unspecified lump in the right breast, upper outer quadrant (principal)
CPT/HCPCS: 76642; 77066; G0279; 77062

== ENCOUNTER → 2022-12-22 | Outpatient (CLI) | payer MEDICARE, OTHER ==
--- NOTE | 2022-12-22 16:09 | Diagnostic Imaging Report ---
INDICATION: Postmenopausal screening. COMPARISON: None. FINDINGS: AP Spine L1-L4: [BMD (g/cm2): 1.149] [T-Score: -0.4] [Z-Score: 0.8] [BMD Previous: na] [BMD % Change: na] LT Hip Neck: [BMD (g/cm2): 0.910] [T-Score: -0.9] [Z-Score: 0.5] LT Hip Total: [BMD (g/cm2):1.013] [T-Score:0.0] [Z-Score: 1.2] [BMD Previous: na] [BMD % Change: na] RT Hip Neck: [BMD (g/cm2):0.911] [T-Score:-0.9] [Z-Score:0.5] RT Hip Total: [BMD (g/cm2):1.004] [T-score:0.0] [Z-Score:1.1] [BMD Previous:na] [BMD % Change:na] *Indicates significant change from prior examination based on 95% confidence level. World Health Organization criteria for BMD interpretation classify patients as Normal (T-score at or above -1.0), Osteopenic (T-score between -1.0 and -2.5) or Osteoporotic (T-score at or below -2.5). LIMITATIONS AND MODIFICATION: None. FRACTURE RISK (FRAX SCORE): The ten year probability of (%): Major Osteoporotic Fracture: [na] Hip Fracture: [na] IMPRESSION: 1. Normal bone mineral density. 2. Baseline examination. 3. See below National Osteoporosis Foundation guidelines on when to potentially initiate pharmacologic therapy. Based on the National Osteoporosis Foundation Guidelines, pharmacologic treatment should be initiated in any of the following, unless clinical conditions suggest otherwise: * Any patient with prior fragility fracture of the hip or vertebrae. A spine fracture indicates 5X risk for subsequent spine fracture and 2X risk for subsequent hip fracture. * Osteoporosis (T-score <-2.5). * Postmenopausal women and men age 50 and older with low bone mass/osteopenia (T-score between -1.0 and -2.5) by DXA and 10-year major osteoporotic fracture greater than 20% or a 10-year probability of hip fracture greater than 3%. These fracture risks are supplied above in the FRAX score, if applicable. * Clinician judgement and/or patient preferences may indicate treatment for people with 10-year fracture probabilities above or below these levels. Dictated by: Dictated on workstation # [id number]
== END ==
LOC: RAD 11:05
PROVIDERS: ATTEND Internal Medicine
DX: M85.80 Other specified disorders of bone density and structure, unspecified site (principal)
CPT/HCPCS: 77080